=== PATIENT | female | born 1930 | race Caucasian/White ===

== ENCOUNTER 2017-06-10 13:28 | Inpatient (IN) | payer MEDICARE, OTHER ==
[~2017-06-10] VITALS: Ht 154.9 cm; Wt 51.3 kg
[~2017-06-10 13:28] MED LIST: AGRYLIN0.5 MG PO; ANAGRELIDE0.5 MG/11; ASA5UEC PO; AUGMENTIN 875875 MG PO; BACTRIM DS TAB1 EACH PO; BENEFIBER1 EACH PO; CIPRO250 M1 PO; CIPRO500 MG PO; COREG3.125 MG PO; COREG6.25 MG PO; CRESTOR10 MG PO; CRESTOR5 MG; FLAGYL500 MG PO; HYDRALAZINE 2525 MG PO; HYDREA 500 MG500 M1 PO; HYDROCODONE-AP1 EAC6 PO; IMDUR 30 MG TAB30 M1 PO; ISORDIL 5MG TABL5 MG; KEFLEX500 MG PO; KLOR-CON 1010 MEQ PO; LASIX 20 MG TAB20 MG PO; LEVAQUIN 500 M500 M2 PO; LISINOPRIL2.5 MG; LISINOPRIL5 MG PO; NORVASC10 MG PO; NORVASC2.5 MG PO; OCUVITE SOFTGE1 EAC1 PO; OCUVITE TABLET1 EAC1 PO; OMEPRAZOLE20 M1 PO; OXYBUTYNIN 5 MG5 M2 PO; PREDNISONE 10 M10 MG PO; PRILOSEC40 MG; ROBAXIN 750 MG750 M1 PO; TYLENOL325 MG PO; ULTRAM 50MG TAB50 MG PO; VERAPAMIL ER240 M1 PO; VITAMIN B-12500 MCG PO; VITAMIN D1000 UNI1 PO; ZPAK PO
[2017-06-10 13:40] VITALS: BP 177/76
[2017-06-10 15:38] LABS: ANION GAP 9 mmol/L (7-16); BUN 14 mg/dL (7-18); CALCIUM 8.3 mg/dL (8.5-10.1); CHLORIDE 100 mmol/L (98-107); CO2 29 mmol/L (21-32); CREATININE 1.1 mg/dL (0.6-1.3); GLUCOSE 117 mg/dL (70-99); POTASSIUM 4.2 mmol/L (3.5-5.1); SODIUM 138 mmol/L (136-145)
[2017-06-10 15:45] LABS: ALBUMIN 3.3 g/dL (3.4-5.0); ALKALINE PHOSPHATASE 138 U/L (46-116); SGOT 26 U/L (15-37); SGPT 19 U/L (30-65); TOTAL BILIRUBIN 0.9 mg/dL (<0.1-1.0); TOTAL PROTEIN 6.6 g/dL (6.4-8.2); TROPONIN-I LEVEL <0.06 ng/mL (<0.06)
[2017-06-10 16:06] LABS: HEMATOCRIT 49.3 % (37.0-47.0); HEMOGLOBIN 15.5 gm/dL (12.0-15.0); MCH 28.5 pg (26.0-34.0); MCHC 31.4 g/dL (28.0-37.0); MCV 90.8 fL (80.0-100.0); MPV 6.8 fl. (7.2-11.1); NUCLEATED RBCS 0 /100WBC; PLATELET COUNT* 284 thou/uL (150-400); RBC 5.44 mil/uL (4.20-5.00); RDW-CV 17.3 % (10.5-14.5); WBC 13.6 thou/uL (4.0-11.0)
[2017-06-10 16:19] LABS: INFLUENZA A ANTIGEN None Detected (None Detect); INFLUENZA B ANTIGEN None Detected (None Detect)
[2017-06-10 16:34] LABS: ABSOLUTE LYMPHOCYTES 0.7 thou/uL (0.8-5.3); ABSOLUTE MONOCYTES 0.3 thou/uL (0.0-1.2); ABSOLUTE NEUTROPHILS 12.6 thou/uL (1.6-8.1)
[2017-06-10 16:35] LABS: PLATELET ESTIMATE ADEQUATE
[2017-06-10 16:36] LABS: ANISOCYTOSIS Occasional
[2017-06-10] MEDS ORDERED: PREDNISONE 10 M10 M1 PO (16:51)
[2017-06-10] MEDS ORDERED: PROAIR HFA8.5 GM INH (16:51)
[2017-06-10] MEDS ORDERED: SPACERADULT PO (16:51)
[2017-06-10] MEDS ORDERED: ZPAK PO (16:52)
--- NOTE | 2017-06-10 17:23 | NUR ---
PT ROAD TESTED WITH RT. O2 DROPPED TO 85% ROOM AIR. PROVIDER MADE AWARE. PLAN TO ADMIT.
[2017-06-10 20:07] VITALS: BP 180/66
[2017-06-10 21:00] VITALS: BP 167/68
[2017-06-11 04:00] VITALS: BP 146/66
[2017-06-11 04:56] LABS: ABSOLUTE LYMPHOCYTES 0.3 thou/uL (0.8-5.3); ABSOLUTE MONOCYTES 0.1 thou/uL (0.0-1.2); ABSOLUTE NEUTROPHILS 12.3 thou/uL (1.6-8.1); BASOPHILS 0.2 %; HEMATOCRIT 49.4 % (37.0-47.0); LYMPHOCYTES 2.2 %; MCH 27.9 pg (26.0-34.0); MCHC 30.3 g/dL (28.0-37.0); MCV 92.4 fL (80.0-100.0); MONOCYTES 0.7 %; MPV 7.4 fl. (7.2-11.1); NUCLEATED RBCS 0 /100WBC; PLATELET COUNT* 305 thou/uL (150-400); POLYS 96.9 %; RBC 5.35 mil/uL (4.20-5.00); RDW-CV 17.1 % (10.5-14.5); WBC 12.7 thou/uL (4.0-11.0)
[2017-06-11 05:16] LABS: ANION GAP 10 mmol/L (7-16); BUN 13 mg/dL (7-18); CALCIUM 8.2 mg/dL (8.5-10.1); CHLORIDE 105 mmol/L (98-107); CO2 26 mmol/L (21-32); GLUCOSE 129 mg/dL (70-99); POTASSIUM 4.3 mmol/L (3.5-5.1); SODIUM 141 mmol/L (136-145); TROPONIN-I LEVEL <0.06 ng/mL (<0.06)
--- NOTE | 2017-06-11 06:11 | NUR ---
PATIENT ARRIVED ON FLOOR FROM ER ABOUT 2014. PATIENT ADMISSION HISTORY AND ASSESSMENT WAS COMPLETED CHARTED. IV FLUIDS WERE STARTED AT 80 ML/HR. PATIENT IS ON OXYGEN AT 2L PER NASAL CANNULA. WILL CONTINUE TO MONITOR.
[2017-06-11 08:00] VITALS: BP 178/62
--- NOTE | 2017-06-11 14:54 | NUR ---
SW met with pt to complete initial assessment, introduce self, and SW role. Pt at bedside. Pt alert and oriented. Pt anticipates being able to dc home with her . Pt independent prior with ADLs and mobility; pt does not have any DME or history of HH services. No needs or concerns expressed at this time. SW to remain available to assist with any safe dc planning needs.
--- NOTE | 2017-06-11 15:12 | 2DMMODE ---
[place] [address] 2 D/M-MODE ECHOCARDIOGRAM Name: RICHMOND STONERRimma Pagan Room: [address] ADM IN Ej#: [id number] Admission: 06/10/17 Attend Phys: Chaim Romero, Discharge: Date of : 30 Date of Service: 06/11/17 1512 Report #: [id number] THIS REPORT FOR: //name// APPROVED REPORT Study performed: 06/11/2017 11:24:34 EXAM: Comprehensive 2D, Doppler, and color-flow Echocardiogram Patient Location: In-Patient Room #: [facility] Status: routine BSA: 1.48 HR: 80 bpm BP: 146/66 mmHg Rhythm: NSR Other Information Study Quality: Good Indications Chest Pain 2D Dimensions LVEF(%): 49.50 (>50%) IVSd: 16.06 (7-11mm) LVOT Diam: 21.31 (18-24mm) LVDd: 32.81 mm PWd: 10.74 (7-11mm) Ascending Ao: 29.00 (22-36mm) LVDs: 24.84 (25-40mm) Aortic Root: 31.22 mm Minor's LVEF: 49.50 % Volumes Left Atrial Volume (Systole) LA ESV Index: 17.00 mL/m2 Aortic Valve AoV Peak Arash.: 1.49 m/s AO Peak Gr.: 8.89 mmHg LVOT Max P.34 mmHg AO Mean Gr.: 4.86 mmHg LVOT Mean P.06 mmHg LVOT Max V: 1.04 m/s AO V2 VTI: 28.16 cm LVOT Mean V: 0.65 m/s ASA (VTI): 3.04 cm2 LVOT V1 VTI: 24.02 cm Mitral Valve E/A Ratio: 0.71 [place] [address] 2 D/M-MODE ECHOCARDIOGRAM Name: IVAN STONER Ej Room: [address] IN .R.#: [id number] Admission: 06/10/17 Attend Phys: Chaim Romero, Discharge: Date of : 30 Date of Service: 06/11/17 1512 Report #: [id number] MV Decel. Time: 261.06 ms MV E Max Arash.: 0.88 m/s MV PHT: 75.71 ms MVA (PHT): 2.91 cm2 TDI E/Lateral E': 12.57 E/Medial E': 12.57 Medial E' Arash.: 0.07 m/s Lateral E' Arash.: 0.07 m/s Pulmonary Valve PV Peak Arash.: 1.21 m/s PV Peak Gr.: 5.82 mmHg Tricuspid Valve TR Peak Gr.: 23.27 mmHg RVSP: 28.00 mmHg Left Ventricle The left ventricle is normal size. Paradoxical septal motion consistent with conduction abnormality. Moderate concentric left ventricular hypertrophy. Left ventricular systolic function is normal. LVEF is 55-60%. Grade I - abnormal relaxation pattern. Right Ventricle The right ventricle is normal size. The right ventricular systolic function is normal. Atria The left atrium size is normal. The right atrium size is normal. Aortic Valve The aortic valve is normal in structure. No aortic regurgitation is present. There is no aortic valvular stenosis. Mitral Valve There is mitral annular calcification. There is no mitral valve regurgitation noted. No evidence of mitral valve stenosis. Tricuspid Valve The tricuspid valve is normal in structure. Trace tricuspid regurgitation. The RVSP is 32 mmHg. Pulmonic Valve The pulmonary valve is normal in structure. There is no pulmonic [place] [address] 2 D/M-MODE ECHOCARDIOGRAM Name: IVAN STONER Room: [address] IN [facility]#: [id number] Admission: 06/10/17 Attend Phys: Chaim Romero, Discharge: Date of : 30 Date of Service: 06/11/17 1512 Report #: [id number] Great Vessels The aortic root is normal in size. IVC is normal in size and collapses with >50% inspiration Pericardium There is no pericardial effusion. <Conclusion> The left ventricle is normal size. Moderate concentric left ventricular hypertrophy. Left ventricular systolic function is normal. LVEF is 55-60%. Grade I - abnormal relaxation pattern. Paradoxical septal motion consistent with conduction abnormality. Trace tricuspid regurgitation. The RVSP is 32 mmHg. <ELECTRONICALLY SIGNED> By: Alex Muller MD, FACC 06/11/17 151 11 11 Alex Muller MD, FACC /INF
--- NOTE | 2017-06-11 16:21 | EKG ---
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: Tang GARCIA : 1930 Requested By: Jacinta Roche Order Number: [id number] MD: Alex Muller Measurements Intervals [place] Rate: 79 P: ND: QRS: 27 QRSD: 128 T: 163 QT: 435 QTc: 499 Interpretive Statements Sinus rhythm Left bundle branch block Artifact in lead(s) I,II,III,aVR,aVL,aVF Compared to ECG 06/26/2016 14:08:43 No significant changes Electronically Signed On 06-11-2017 16:20:45 CITY COUNCILMAN by Alex Muller [email or web address] <ELECTRONICALLY SIGNED> By: Alex Muller MD, FACC 06/11/17 1620 1458 1458 Alex Muller MD, [facility] /EPI
[2017-06-11 16:30] VITALS: BP 135/61
--- NOTE | 2017-06-11 20:15 | NUR ---
ASSUMED CARE FOR THIS PATIENT THIS AM. A/O X 4, DENIES PAIN, UP AD SHRUTI. ON 2L02NC, MID 80'S 02 SAT ON RA, MID 90'S 02 SAT ON 2L. NONPROD COUGH THROUGHOUT THIS SHIFT, OCC CRACKLE IN RLL, OTHERWISE LSCTAB. ALESHA DIET WELL, CONTINENT OF BOWEL/BLADDER, ALESHA IV ABT W/O ADR. CALL LIGHT IN REACH.
[2017-06-11 23:30] VITALS: BP 129/57
[2017-06-12 03:55] VITALS: BP 152/79
[2017-06-12 04:22] LABS: ALBUMIN 2.9 g/dL (3.4-5.0); CALCIUM 8.5 mg/dL (8.5-10.1); CREATININE 1.2 mg/dL (0.6-1.3); MAGNESIUM 1.8 mg/dL (1.8-2.4); POTASSIUM 3.4 mmol/L (3.5-5.1); TOTAL BILIRUBIN 0.6 mg/dL (<0.1-1.0); TOTAL PROTEIN 6.1 g/dL (6.4-8.2)
[2017-06-12 05:12] LABS: ABSOLUTE BASOPHILS 0.1 thou/uL (0.0-0.2); ABSOLUTE EOSINOPHILS 0.1 thou/uL (0.0-0.7); ABSOLUTE LYMPHOCYTES 0.5 thou/uL (0.8-5.3); ABSOLUTE MONOCYTES 0.7 thou/uL (0.0-1.2); ABSOLUTE NEUTROPHILS 14.4 thou/uL (1.6-8.1); BASOPHILS 0.4 %; EOSINOPHILS 0.4 %; HEMATOCRIT 49.4 % (37.0-47.0); HEMOGLOBIN 15.2 gm/dL (12.0-15.0); LYMPHOCYTES 2.9 %; MCH 28.2 pg (26.0-34.0); MCHC 30.7 g/dL (28.0-37.0); MCV 91.7 fL (80.0-100.0); MONOCYTES 4.4 %; MPV 6.8 fl. (7.2-11.1); NUCLEATED RBCS 0 /100WBC; PLATELET COUNT* 338 thou/uL (150-400); POLYS 91.9 %; RBC 5.38 mil/uL (4.20-5.00); RDW-CV 17.4 % (10.5-14.5); WBC 15.6 thou/uL (4.0-11.0)
--- NOTE | 2017-06-12 07:33 | NUR ---
PATIENT SLEPT PART OF THE NIGHT. PATIENT IS MORE FORGETUL AND A LITTLE CONFUSED AT NIGHT. BED ALARM REMAINS ON FOR PATIENT SAFETY. OXYGEN REMAINS ON 2L PER NASAL CANNULA. WILL CONTINUE TO MONITOR.
[2017-06-12 07:50] VITALS: BP 166/79
[2017-06-12] MEDS ORDERED: LEVAQUIN 500 M500 M2 PO (13:52)
[2017-06-12 13:53] VITALS: BP 166/79
--- NOTE | 2017-06-12 14:36 | NUR ---
ORDERS RECEIVED FOR DC HOME, DISCUSS HH WITH PT. SHE WOULD LIKE TO USE [facility] AGAIN. [facility] PT DID NOT QUALIFY FOR HOME O2. SHE WAS HAPPY ABOUT IT. NO OTHER NEEDS ID'D
[2017-06-12 16:27] VITALS: BP 155/77
--- NOTE | 2017-06-12 18:26 | NUR ---
PATIENT RESTING IN BED. PATIENT IS ALERT AND ORIENTED AND FORGETFUL. PATIENT IS UP STANDBY ASSIST. PATIENT IS ANXIOUS ABOUT CT SCAN IN AM. PATIENT HAD COMPLAINTS OF BACK PAIN THIS AM, TREATED ADEQUATELY WITH TYLENOL. PATIENT DENIES ANY TROUBLE BREATHING. PATIENT IS ON ROOM AIR THIS EVENING AFTER EXERCISE SAT PERFORMED BY RT. PATIENT DENIES ANY NEEDS. CALL LIGHT WITHIN REACH. WILL CONTINUE TO MONITOR.
[2017-06-13] VITALS: BP 123/54
[2017-06-13 04:18] VITALS: BP 143/68
--- NOTE | 2017-06-13 05:49 | NUR ---
PATIENT SLEPT MOST OF THE NIGHT. IV FLUIDS CONTINUE TO INFUSE AT 70 ML/HR. PATIENT WAS GIVEN TYLENOL ONCE FOR PAIN. PATIENT WAS PLACED BACK ON 2L PER NASAL CANNULA AFTER SATTING 86% ON ROOM AIR. WILL CONTINUE TO MONITOR.
[2017-06-13 06:03] LABS: CREATININE 1.2 mg/dL (0.6-1.3); POTASSIUM 3.8 mmol/L (3.5-5.1)
[2017-06-13 07:50] VITALS: BP 136/69
[2017-06-13 13:12] VITALS: BP 166/79
--- NOTE | 2017-06-13 13:14 | NUR ---
NILA discussed with pt to confirm HH services through [facility] as pt to dc today. Pt hopeful to receive same nurse from [facility] as she had on service in the past. NILA called and left Jumana with [facility] HH Intake a message and faxed referral/final orders and med list to [phone]. Pt has RW at home and pt here to provide pt ride home.
--- NOTE | 2017-06-13 15:25 | NUR ---
PATIENT DISCHARGED TO HOME WITH HOME HEALTH. DISCHARGE PAPERS REVIEWED AND SIGNED. PRESCRIPTIONS AND INFORMATION SHEETS GIVEN. IV'S REMOVED. PATIENT DENIES ANY FURTHER NEEDS. PATIENT TAKEN BY WHEELCHAIR TO EXIT. LEFT WITH .
== END 2017-06-13 13:30 | disposition home health service (06) | DRG 177 ==
LOC: M.ERS 13:28 → M.TBA-ER 17:30 → M.3W 17:30
PROVIDERS: Nurse Practitioner Family; ADMIT Internal Medicine
DX: J15.6 Pneumonia due to other Gram-negative bacteria (principal); J96.00 Acute respiratory failure, unspecified whether with hypoxia or hypercapnia; I42.9 Cardiomyopathy, unspecified; I13.0 Hypertensive heart and chronic kidney disease with heart failure and stage 1 through stage 4 chronic kidney disease, or unspecified chronic kidney disease; R65.10 Systemic inflammatory response syndrome (SIRS) of non-infectious origin without acute organ dysfunction; I50.32 Chronic diastolic (congestive) heart failure; N18.9 Chronic kidney disease, unspecified; J20.9 Acute bronchitis, unspecified; D47.3 Essential (hemorrhagic) thrombocythemia; I50.9 Heart failure, unspecified; M19.90 Unspecified osteoarthritis, unspecified site; Z79.899 Other long term (current) drug therapy; Z90.12 Acquired absence of left breast and nipple; Z90.49 Acquired absence of other specified parts of digestive tract; Z86.73 Personal history of transient ischemic attack (TIA), and cerebral infarction without residual deficits; Z90.710 Acquired absence of both cervix and uterus; Z88.0 Allergy status to penicillin; Z88.8 Allergy status to other drugs, medicaments and biological substances; Z91.041 Radiographic dye allergy status

== ENCOUNTER → 2017-07-26 | Outpatient (CLI) | payer MEDICARE, OTHER ==
[~2017-07-26] MED LIST changes: +PREDNISONE 10 M10 M1 PO; +PROAIR HFA8.5 GM INH; +PROTONIX 20 MG20 M1 PO; +SPACERADULT PO
== END ==
LOC: M.ULTRA 13:02
DX: I77.9 Disorder of arteries and arterioles, unspecified (principal); G45.9 Transient cerebral ischemic attack, unspecified

== ENCOUNTER 2017-08-15 21:48 | Inpatient (IN) | payer MEDICARE, OTHER ==
[~2017-08-15] VITALS: Ht 157.5 cm; Wt 50.3 kg
[~2017-08-15 21:48] MED LIST changes: -PROTONIX 20 MG20 M1 PO
[2017-08-15 21:52] VITALS: BP 176/68
[2017-08-15 22:18] LABS: ABSOLUTE BASOPHILS 0.1 thou/uL (0.0-0.2); ABSOLUTE EOSINOPHILS 0.4 thou/uL (0.0-0.7); ABSOLUTE LYMPHOCYTES 1.4 thou/uL (0.8-5.3); ABSOLUTE MONOCYTES 0.6 thou/uL (0.0-1.2); ABSOLUTE NEUTROPHILS 10.6 thou/uL (1.6-8.1); BASOPHILS 1.1 %; EOSINOPHILS 3.2 %; HEMATOCRIT 50.4 % (37.0-47.0); HEMOGLOBIN 15.7 gm/dL (12.0-15.0); LYMPHOCYTES 10.4 %; MCH 28.3 pg (26.0-34.0); MCHC 31.2 g/dL (28.0-37.0); MCV 90.7 fL (80.0-100.0); MONOCYTES 4.9 %; MPV 7.1 fl. (7.2-11.1); NUCLEATED RBCS 0 /100WBC; PLATELET COUNT* 458 thou/uL (150-400); POLYS 80.4 %; RBC 5.56 mil/uL (4.20-5.00); RDW-CV 17.4 % (10.5-14.5); WBC 13.2 thou/uL (4.0-11.0)
[2017-08-15 22:28] LABS: ANION GAP 8 mmol/L (7-16); BUN 13 mg/dL (7-18); CALCIUM 8.6 mg/dL (8.5-10.1); CHLORIDE 106 mmol/L (98-107); CO2 26 mmol/L (21-32); CREATININE 0.9 mg/dL (0.6-1.3); GLUCOSE 98 mg/dL (70-99); POTASSIUM 3.9 mmol/L (3.5-5.1); SODIUM 140 mmol/L (136-145)
[2017-08-15 22:31] LABS: INR 1.2; PROTIME 11.9 Seconds (9.20-11.50)
[2017-08-15 22:33] LABS: URINE BILIRUBIN NEGATIVE (Negative); URINE BLOOD TRACE (Negative); URINE CLARITY CLEAR; URINE COLOR YELLOW; URINE GLUCOSE-RANDOM NEGATIVE (Negative); URINE KETONES NEGATIVE (Negative); URINE LEUKOCYTES-REFLEX TRACE (Negative); URINE NITRITE-REFLEX NEGATIVE (Negative); URINE PROTEIN NEGATIVE (Negative); URINE UROBILINOGEN 0.2 E.U./dl (0.2-1.0)
[2017-08-15 22:39] LABS: ALBUMIN 3.1 g/dL (3.4-5.0); ALKALINE PHOSPHATASE 110 U/L (46-116); LIPASE 114 U/L (73-393); NT-PRO BRAIN NAT PEPTIDE 856 pg/mL (<300); SGOT 43 U/L (15-37); SGPT 39 U/L (30-65); TOTAL BILIRUBIN 0.8 mg/dL (<0.1-1.0); TOTAL PROTEIN 6.3 g/dL (6.4-8.2); TROPONIN-I LEVEL <0.06 ng/mL (<0.06)
[2017-08-15 22:42] LABS: BACTERIA-REFLEX None Seen /HPF (None Seen); MUCUS None Seen strn/LPF (None Seen); SQUAMOUS 0-3 Few /LPF (0-3); URINE WBC-REFLEX 0-5 Rare /HPF (0-5)
[2017-08-15 22:43] LABS: CASTS None Seen /LPF (None Seen); CRYSTALS None Seen /LPF (None Seen); URINE RBC 0-2 Rare /HPF (0-2)
[2017-08-15 23:55] VITALS: BP 165/59
[2017-08-16 00:23] VITALS: BP 152/59
[2017-08-16 04:00] VITALS: BP 129/52
[2017-08-16 04:57] LABS: HEMATOCRIT 46.7 % (37.0-47.0); HEMOGLOBIN 14.3 gm/dL (12.0-15.0); MCH 27.9 pg (26.0-34.0); MCHC 30.5 g/dL (28.0-37.0); MCV 91.3 fL (80.0-100.0); MPV 7.2 fl. (7.2-11.1); RBC 5.12 mil/uL (4.20-5.00); RDW-CV 17.3 % (10.5-14.5); WBC 11.7 thou/uL (4.0-11.0)
[2017-08-16 05:12] LABS: ALBUMIN 2.6 g/dL (3.4-5.0); CALCIUM 8.2 mg/dL (8.5-10.1); CREATININE 0.9 mg/dL (0.6-1.3); POTASSIUM 3.8 mmol/L (3.5-5.1); TOTAL BILIRUBIN 0.7 mg/dL (<0.1-1.0); TOTAL PROTEIN 5.4 g/dL (6.4-8.2)
[2017-08-16 09:20] VITALS: BP 155/63
--- NOTE | 2017-08-16 11:38 | EKG ---
[place] [address] ELECTROCARDIOGRAM REPORT Name: IVAN STONER Room: [address] ADM IN M.R.#: [id number] Admission: 08/15/17 Attend Phys: Chaim Romero MD Discharge: Date of : 30 Report #: [id number] THIS REPORT FOR: //name// [facility] ED Test Date: 2017-08-15 Test Time: 21:58:46 Pat Name: IVAN STONER Department: Room: 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 [place]: [place] : 1930 Requested By: Mariia Mendez Order Number: [id number] MD: Kurt Lagunas Measurements Intervals [place] Rate: 82 P: 75 [place]: 178 QRS: 37 QRSD: 124 T: 82 QT: 450 QTc: 526 Interpretive Statements Sinus rhythm Left bundle branch block Compared to ECG 06/10/2017 14:58:39 No significant changes Electronically Signed On 08-16-2017 11:38:42 CDT by Kurt Lagunas [email or web address] <ELECTRONICALLY SIGNED> By: Kurt Lagunas MD, [facility] 08/16/17 1138 2158 57 Kurt Lagunas MD, [facility] /EPI
--- NOTE | 2017-08-16 11:40 | EKG ---
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
[2017-08-16 12:00] VITALS: BP 162/69
[2017-08-16 15:43] VITALS: BP 118/52
[2017-08-16 20:39] VITALS: BP 91/57
[2017-08-17] VITALS: BP 111/50
[2017-08-17 04:00] VITALS: BP 115/55
[2017-08-17 05:49] LABS: HEMATOCRIT 43.5 % (37.0-47.0); HEMOGLOBIN 13.4 gm/dL (12.0-15.0); MCH 28.2 pg (26.0-34.0); MCHC 30.7 g/dL (28.0-37.0); MCV 91.8 fL (80.0-100.0); MPV 7.5 fl. (7.2-11.1); RBC 4.74 mil/uL (4.20-5.00); RDW-CV 17.3 % (10.5-14.5); WBC 10.6 thou/uL (4.0-11.0)
[2017-08-17 07:20] LABS: ANION GAP 10 mmol/L (7-16); BUN 19 mg/dL (7-18); CALCIUM 8.4 mg/dL (8.5-10.1); CHLORIDE 105 mmol/L (98-107); CO2 25 mmol/L (21-32); CREATININE 1.3 mg/dL (0.6-1.3); GLUCOSE 70 mg/dL (70-99); POTASSIUM 4.3 mmol/L (3.5-5.1); SODIUM 140 mmol/L (136-145); TROPONIN-I LEVEL <0.06 ng/mL (<0.06)
[2017-08-17 08:25] VITALS: BP 150/63
[2017-08-17 08:29] VITALS: BP 150/63
[2017-08-17 11:35] VITALS: BP 108/53
[2017-08-17] MEDS ORDERED: CIPRO500 MG PO (13:18)
--- NOTE | 2017-08-17 13:18 | CON ---
[address] [address] CONSULTATION Name: IVAN STONER jE Room: [address] IN M.R.#: [id number] Admission: 08/15/17 Attend Phys: Chaim Romero MD Discharge: Date of : 30 Report #: [id number] THIS REPORT FOR: //name// CC: Chaim Romero [facility] physician/PCP AMY RUIZ DATE OF SERVICE: 08/16/2017 PRIMARY CARE PHYSICIAN: Dr. Amy Ruiz. HISTORY OF PRESENT ILLNESS: The patient is an 86-year-old white female who I was asked to see in the hospital today after she complained of having chest pain. The patient has had multiple hospitalizations here at [facility]. She actually saw Dr. Tidwell back in 2014 when she complained of being short of breath. Echocardiogram showed preserved left ventricular function. She has a history of paroxysmal supraventricular tachycardia. She apparently has never had a heart catheterization. Her last hospitalization here at [facility] was in May when she presented with bronchitis. Cardiac workup in the past included an echocardiogram in May that showed an ejection fraction of 60%, left ventricular hypertrophy. She apparently has never had a heart catheterization. She did have previous nuclear stress test showing no ischemia. The patient actually just saw my nurse practitioner yesterday. She has had no significant complaints. The patient is not very active because of her age. The patient states that she was lying in bed last night at about 9:00, and she suddenly felt a pain in her chest. It went around into her back. It was a heavy sensation. She had some belching, felt short of breath, went into her left arm. Her brought her to the emergency room, and she was admitted. The pain lasted about 2 hours. She has had only brief chest pain since that time. She has had no recent fever, cough, blood in her stool, trauma in her chest or rash. PAST MEDICAL HISTORY: Otherwise significant for cataract extraction, cholecystectomy, hernia repair, hysterectomy, left mastectomy for breast cancer. She had a tonsillectomy, hypertension, hyperlipidemia. MEDICATIONS: Consist of amlodipine, aspirin, carvedilol, furosemide, hydralazine, hydroxyurea, Imdur, Crestor. ALLERGIES: SHE HAS A PREVIOUS INTOLERANCE TO PENICILLIN. FAMILY HISTORY: Negative for heart disease. SOCIAL HISTORY: She is . Her is actually a patient of mine. They live in [place]. No smoking or alcohol use. REVIEW OF SYSTEMS: She has no history of stroke, asthma, peptic ulcer disease, [place] [address] CONSULTATION Name: IVAN STONER Room: [address] IN [facility]#: [id number] Admission: 08/15/17 Attend Phys: Chaim Romero MD Discharge: Date of : 30 Report #: [id number] liver disease. She does have a history of thrombocytosis and is followed in the Oncology Clinic. She has history of chronic kidney disease, followed by a debt collector. She had a history of breast cancer. No history of psychiatric illness. No chronic skin condition. PHYSICAL EXAMINATION: GENERAL: Revealed an elderly frail appearing female who appeared in no distress. VITAL SIGNS: Blood pressure 150/60, pulse 70. She is afebrile. HEENT: She was anicteric, conjunctiva pink. Mucous membranes moist. NECK: Veins nondistended. No carotid bruits. Neck supple. CHEST: Clear to auscultation. CARDIOVASCULAR: Regular rate without murmur. ABDOMEN: Soft, nontender. EXTREMITIES: Had no edema. Dorsalis pedis pulse cannot be palpated. SKIN: Cool and dry. NEUROLOGIC: Nonfocal. LYMPH: No adenopathy. MUSCULOSKELETAL: No joint effusion. RADIOLOGICAL DATA: ECG showed a sinus rhythm with a left bundle branch block that had been noted on previous ECGs. Her workup so far, she had a portable chest x-ray last night that showed chronic changes, nothing acute. Pulmonary vasculature was normal. Carotid Doppler study last month showed mild plaque, no high grade stenosis. LABORATORY DATA: Sodium 142, creatinine 0.9. Liver function studies are normal. Troponins 0.06. White blood cell count 11.7, hemoglobin 14.3, platelet count 406,000. IMPRESSION AND RECOMMENDATIONS: 1. Chest pain. The patient has risk factors for coronary artery disease. No evidence of acute myocardial infarction. In light of her advanced age, I would recommend a conservative approach. I would not recommend stress testing nor cardiac catheterization. 2. History of cardiomyopathy. The patient has been on beta aprvin, hydralazine and long-acting nitrates. 3. Hyperlipidemia. The patient is on a statin drug. 4. History of breast cancer. <ELECTRONICALLY SIGNED> By: Kurt Lagunas MD, FACC 08/17/17 1318 1231 1345Davilyssa Lagunas MD, FAC /nt
[2017-08-17] MEDS ORDERED: PROTONIX 20 MG20 M1 PO (13:19)
== END 2017-08-17 13:35 | disposition home or self-care (01) | DRG 303 ==
LOC: M.ERS 21:48 → M.2W 23:18 → M.TBA-ER 23:18 → M.2W 08-16 00:05
PROVIDERS: Emergency Medicine; Family Medicine; ADMIT Internal Medicine
DX: I25.119 Atherosclerotic heart disease of native coronary artery with unspecified angina pectoris (principal); I13.0 Hypertensive heart and chronic kidney disease with heart failure and stage 1 through stage 4 chronic kidney disease, or unspecified chronic kidney disease; I50.32 Chronic diastolic (congestive) heart failure; E44.0 Moderate protein-calorie malnutrition; M19.90 Unspecified osteoarthritis, unspecified site; E78.5 Hyperlipidemia, unspecified; I42.9 Cardiomyopathy, unspecified; N18.3 Chronic kidney disease, stage 3 (moderate); Z86.73 Personal history of transient ischemic attack (TIA), and cerebral infarction without residual deficits; Z90.710 Acquired absence of both cervix and uterus; Z90.12 Acquired absence of left breast and nipple; Z90.49 Acquired absence of other specified parts of digestive tract; Z88.6 Allergy status to analgesic agent; Z88.8 Allergy status to other drugs, medicaments and biological substances; Z88.0 Allergy status to penicillin; Z98.42 Cataract extraction status, left eye; Z98.41 Cataract extraction status, right eye; Z85.3 Personal history of malignant neoplasm of breast; Z79.899 Other long term (current) drug therapy; Z79.82 Long term (current) use of aspirin; Z68.20 Body mass index [BMI] 20.0-20.9, adult; Z88.2 Allergy status to sulfonamides

== ENCOUNTER → 2017-08-15 | Outpatient (CLI) | payer MEDICARE, OTHER | LOC: M.CT 12:06 | DX: I72.2 Aneurysm of renal artery (principal); R16.1 Splenomegaly, not elsewhere classified; K57.32 Diverticulitis of large intestine without perforation or abscess without bleeding; J98.11 Atelectasis ==

== ENCOUNTER → 2017-08-22 | Outpatient (CLI) | payer MEDICARE, OTHER ==
[~2017-08-22] MED LIST changes: +PROTONIX 20 MG20 M1 PO
[2017-08-22 10:52] LABS: CALCIUM 8.4 mg/dL (8.5-10.1); CREATININE 1.6 mg/dL (0.6-1.3); POTASSIUM 3.7 mmol/L (3.5-5.1)
== END ==
LOC: M.LAB 09:54
PROVIDERS: Internal Medicine Cardiovascular Disease
DX: I50.22 Chronic systolic (congestive) heart failure (principal)

== ENCOUNTER → 2017-08-26 | Outpatient (CLI) | payer MEDICARE, OTHER | LOC: M.RAD 09:31 | DX: K21.9 Gastro-esophageal reflux disease without esophagitis (principal); K44.9 Diaphragmatic hernia without obstruction or gangrene; K57.10 Diverticulosis of small intestine without perforation or abscess without bleeding; I20.0 Unstable angina ==

== ENCOUNTER 2017-08-30 05:53 | Inpatient (IN) | payer MEDICARE, OTHER ==
[~2017-08-30] VITALS: Ht 157.5 cm; Wt 54.4 kg
[2017-08-30] VITALS (8 sets, daily range): BP systolic 129–155; BP diastolic 51–65
--- NOTE | ~2017-08-30 | PROC ---
[address] [address] PROCEDURE REPORT Name: IVAN STONER Room: [address] IN M.R.#: [id number] Admission: 08/30/17 Attend Phys: Mita Lazo MD Discharge: 09/04/17 Date of : 30 Report #: [id number] THIS REPORT FOR: //name// For GI report, Please see Perceptive 7 content. By: [id number] Records Staff PARK /ABY
--- NOTE | ~2017-08-30 | PROC ---
[address] [address] PROCEDURE REPORT Name: IVAN STONER Room: [address] IN M.R.#: [id number] Admission: 08/30/17 Attend Phys: Mita Lazo MD Discharge: 09/04/17 Date of : 30 Report #: [id number] THIS REPORT FOR: //name// By: [id number] Haider MD /ALEJANDRO
[2017-08-30 06:24] LABS: HEMATOCRIT 57.2 % (37.0-47.0); MCHC 29.7 g/dL (28.0-37.0); MCV 90.8 fL (80.0-100.0); MPV 7.4 fl. (7.2-11.1); NUCLEATED RBCS 0 /100WBC; PLATELET COUNT* 401 thou/uL (150-400); RBC 6.31 mil/uL (4.20-5.00); RDW-CV 17.5 % (10.5-14.5); WBC 16.2 thou/uL (4.0-11.0)
[2017-08-30 06:37] LABS: ANION GAP 13 mmol/L (7-16); BUN 23 mg/dL (7-18); CALCIUM 9.2 mg/dL (8.5-10.1); CHLORIDE 103 mmol/L (98-107); CO2 23 mmol/L (21-32); CREATININE 1.4 mg/dL (0.6-1.3); GLUCOSE 149 mg/dL (70-99); POTASSIUM 3.6 mmol/L (3.5-5.1); SODIUM 139 mmol/L (136-145)
[2017-08-30 06:38] LABS: INR 1.3; PROTIME 12.6 Seconds (9.20-11.50)
[2017-08-30 06:44] LABS: ALBUMIN 3.6 g/dL (3.4-5.0); ALKALINE PHOSPHATASE 118 U/L (46-116); SGOT 46 U/L (15-37); SGPT 39 U/L (30-65); TOTAL PROTEIN 6.7 g/dL (6.4-8.2); TROPONIN-I LEVEL <0.06 ng/mL (<0.06)
[2017-08-30 07:19] LABS: ABSOLUTE BASOPHILS 0.2 thou/uL (0.0-0.2); ABSOLUTE EOSINOPHILS 0.2 thou/uL (0.0-0.7); ABSOLUTE LYMPHOCYTES 1.1 thou/uL (0.8-5.3); ABSOLUTE MONOCYTES 0.6 thou/uL (0.0-1.2); ABSOLUTE NEUTROPHILS 14.1 thou/uL (1.6-8.1); PLATELET ESTIMATE ADEQUATE
[2017-08-30 14:38] LABS: HEMATOCRIT 50.8 % (37.0-47.0); HEMOGLOBIN 15.5 gm/dL (12.0-15.0)
[2017-08-31] VITALS (8 sets, daily range): BP systolic 104–153; BP diastolic 40–61
[2017-08-31 04:51] LABS: CALCIUM 8.4 mg/dL (8.5-10.1); CREATININE 1.1 mg/dL (0.6-1.3); MAGNESIUM 1.8 mg/dL (1.8-2.4); POTASSIUM 3.6 mmol/L (3.5-5.1)
[2017-08-31 05:07] LABS: HEMATOCRIT 50.3 % (37.0-47.0); HEMOGLOBIN 15.2 gm/dL (12.0-15.0); MCH 27.3 pg (26.0-34.0); MCHC 30.3 g/dL (28.0-37.0); MCV 90.2 fL (80.0-100.0); MPV 7.5 fl. (7.2-11.1); RBC 5.57 mil/uL (4.20-5.00); RDW-CV 17.4 % (10.5-14.5); WBC 16.1 thou/uL (4.0-11.0)
[2017-09-01 03:51] LABS: HEMATOCRIT 43.2 % (37.0-47.0); MCH 27.1 pg (26.0-34.0); MCHC 30.3 g/dL (28.0-37.0); MCV 89.2 fL (80.0-100.0); MPV 7.3 fl. (7.2-11.1); RBC 4.84 mil/uL (4.20-5.00); RDW-CV 17.1 % (10.5-14.5); WBC 11.2 thou/uL (4.0-11.0)
[2017-09-01 03:54] LABS: HEMOGLOBIN 13.1 gm/dL (12.0-15.0)
[2017-09-01 04:12] LABS: CALCIUM 7.9 mg/dL (8.5-10.1); CREATININE 1.1 mg/dL (0.6-1.3); MAGNESIUM 1.7 mg/dL (1.8-2.4)
[2017-09-01 04:32] LABS: POTASSIUM 2.9 mmol/L (3.5-5.1)
[2017-09-01 12:09] VITALS: BP 104/42
[2017-09-01 16:00] VITALS: BP 120/47
[2017-09-01 23:42] VITALS: BP 118/53
[2017-09-02 05:15] LABS: HEMATOCRIT 43.8 % (37.0-47.0); HEMOGLOBIN 13.3 gm/dL (12.0-15.0); MCH 27.1 pg (26.0-34.0); MCHC 30.3 g/dL (28.0-37.0); MCV 89.5 fL (80.0-100.0); MPV 7.3 fl. (7.2-11.1); RBC 4.9 mil/uL (4.20-5.00); RDW-CV 17.1 % (10.5-14.5); WBC 11.6 thou/uL (4.0-11.0)
[2017-09-02 05:21] LABS: URINE BILIRUBIN NEGATIVE (Negative); URINE BLOOD 1+ (Negative); URINE CLARITY CLEAR; URINE COLOR YELLOW; URINE GLUCOSE-RANDOM NEGATIVE (Negative); URINE KETONES NEGATIVE (Negative); URINE LEUKOCYTES-REFLEX TRACE (Negative); URINE NITRITE-REFLEX NEGATIVE (Negative); URINE PROTEIN TRACE (Negative); URINE SPECIFIC GRAVITY 1.025 (1.005-1.030); URINE UROBILINOGEN 0.2 E.U./dl (0.2-1.0)
[2017-09-02 05:34] LABS: BACTERIA-REFLEX 1-9 Few /HPF (None Seen); CASTS None Seen /LPF (None Seen); CRYSTALS None Seen /LPF (None Seen); MUCUS 0-3 Light strn/LPF (None Seen); SQUAMOUS 0-3 Few /LPF (0-3); URINE RBC 0-2 Rare /HPF (0-2); URINE WBC-REFLEX 6-15 Few /HPF (0-5)
[2017-09-02 05:47] LABS: CALCIUM 7.9 mg/dL (8.5-10.1); CREATININE 1.1 mg/dL (0.6-1.3); MAGNESIUM 1.7 mg/dL (1.8-2.4); POTASSIUM 3.8 mmol/L (3.5-5.1)
[2017-09-02 10:35] VITALS: BP 106/58
--- NOTE | 2017-09-02 15:01 | CON ---
[address] [address] CONSULTATION Name: IVAN STONER Room: [address] IN M.R.#: [id number] Admission: 08/30/17 Attend Phys: Mita Lazo MD Discharge: Date of : 30 Report #: [id number] THIS REPORT FOR: //name// CC: Mita Worthington MD DATE OF SERVICE: 08/31/2017 REQUESTING PHYSICIAN: Dr. Mita Lazo. REASON FOR CONSULT: Hematochezia, diarrhea and rectal pain. HISTORY OF PRESENT ILLNESS: This is an 87-year-old female who was recently discharged from hospital on 08/27/2017. She returns after 3 days with rectal bleeding. Since admission, her hemoglobin has been stable between 17 and 15. She is also hemodynamically stable. During her last visit, she had diagnosis of diverticulitis and diarrhea. Her diarrhea had resolved during the hospitalization prior to discharging home. She was discharged on Cipro and Flagyl. The patient underwent RBC tagged scan, which was essentially unremarkable. Her last colonoscopy back in 2009 was significant for tubular adenoma and pandiverticulosis. PAST MEDICAL HISTORY: Significant for chronic kidney disease, hypertension, idiopathic thrombocytopenia, arthritis, TIA, left mastectomy, hysterectomy, gallbladder disease, status post cholecystectomy, cataract surgery, tonsillectomy, hernia repair. ALLERGIES: SIGNIFICANT TO IODINE, MACROBID, LIPITOR, AND PENICILLIN. MEDICATIONS: Please refer to hospital JUL. SOCIAL HISTORY: The patient denies tobacco or alcohol use. FAMILY HISTORY: Noncontributory. PHYSICAL EXAMINATION: VITAL SIGNS: Reveals blood pressure of 106/40, respirations 17, pulse 81, temperature 98.1. LUNGS: Clear. CARDIOVASCULAR: Regular. ABDOMEN: Soft, mildly tender to palpation in the lower quadrant[place] [address] CONSULTATION Name: IVAN STONER Room: [address] IN [facility]#: [id number] Admission: 08/30/17 Attend Phys: Mita Lazo MD Discharge: Date of : 30 Report #: [id number] LABORATORY DATA: Revealed sodium of 140, potassium 3.6, BUN is 13, creatinine 1.1, glucose 135. Liver function tests are all within normal limit. INR is 1.3 with protime of 12.6. WBC 16.1, hemoglobin 15.2 with platelet of 401. IMAGING: CT of GI RBC tagged scan was essentially negative. ASSESSMENT AND PLAN: The patient with rectal pain and blood per rectum, who has had recent history of diverticulitis and diarrhea. We will continue monitoring H and H and if her bleeding persists, may consider flex sigmoidoscopy. <ELECTRONICALLY SIGNED> By: Lucy Haider MD 09/02/17 1501 0908 [id number] Haider MD /rizwan
[2017-09-02 17:25] VITALS: BP 140/74; BP 157/66
[2017-09-02 17:38] VITALS: BP 117/61
[2017-09-03 00:22] VITALS: BP 136/57
[2017-09-03 08:30] VITALS: BP 135/66
[2017-09-03 12:16] VITALS: BP 135/66
--- NOTE | 2017-09-03 16:28 | EKG ---
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 09/03/17 1627 1708 1708 Baldemar Smith MD, [facility] /EPI
[2017-09-03 23:27] VITALS: BP 102/48
[2017-09-04 03:47] VITALS: BP 119/47
[2017-09-04 07:57] LABS: URINE BLOOD NEGATIVE (Negative); URINE CLARITY CLEAR; URINE COLOR YELLOW; URINE GLUCOSE-RANDOM NEGATIVE (Negative); URINE KETONES 1+ (Negative); URINE LEUKOCYTES-REFLEX NEGATIVE (Negative); URINE PROTEIN 1+ (Negative); URINE SPECIFIC GRAVITY >= 1.030 (1.005-1.030); URINE UROBILINOGEN 0.2 E.U./dl (0.2-1.0)
[2017-09-04 08:15] VITALS: BP 134/59
[2017-09-04 08:23] LABS: ICTOTEST (BILI CONFIRMATORY) Negative (Negative); URINE BILIRUBIN 1+ (Negative); URINE NITRITE-REFLEX POSITIVE (Negative)
[2017-09-04 08:29] LABS: BACTERIA-REFLEX 1-9 Few /HPF (None Seen); CRYSTALS None Seen /LPF (None Seen); HYALINE CASTS 0-3 Few /LPF (None Seen); MUCUS 4-6 Moderate strn/LPF (None Seen); SQUAMOUS 4-10 Moderate /LPF (0-3); URINE RBC 0-2 Rare /HPF (0-2); URINE WBC-REFLEX 0-5 Rare /HPF (0-5)
[2017-09-04] MEDS ORDERED: CIPRO500 MG PO (11:07)
[2017-09-04] MEDS ORDERED: FLAGYL500 MG PO (11:07)
[2017-09-04 11:49] VITALS: BP 106/40
[2017-09-04 12:52] VITALS: BP 106/40
--- NOTE | 2017-10-20 10:00 | PROC ---
[address] [address] PROCEDURE REPORT Name: IVAN STONER Ej Room: [address] IN M.R.#: [id number] Admission: 08/30/17 Attend Phys: Mita Lazo MD Discharge: 09/04/17 Date of : 30 Report #: [id number] THIS REPORT FOR: //name// Procedure Note Description of Procedure: Colonsscopy to TI report: Preparation of the colon was fair. Diverticulosis in the sigmoid colon, in the descending colon, in the transverse colon and in the ascending colon. Non-bleeding external hemorrhoids. One 8 mm polyp in the cecum. Biopsied - Erythematous, inflamed and ulcerated mucosa in the rectum and in the sigmoid colon. Biopsied. The examined portion of the ileum was normal. Plan: Await pathology results. Cipro (ciprofloxacin) 500 mg PO BID for 2 weeks. Flagyl (metronidazole) 500 mg PO TID for 2 weeks. Discharge patient to home (ambulatory). Return to GI clinic in 2 weeks. <ELECTRONICALLY SIGNED> By: Lucy Haider MD 10/20/17 1000 D: 1145Lcuy Haider MD /ALEJANDRO
== END 2017-09-04 13:15 | disposition home health service (06) | DRG 813 ==
LOC: M.ERS 05:53 → M.3W 06:45 → M.TBA-ER 06:45 → M.ICU 13:07 → M.3W 08-31 15:02
PROVIDERS: Emergency Medicine; Family Medicine; Internal Medicine; ADMIT Internal Medicine
PROC: 0DBN8ZX Excision of Sigmoid Colon, Via Natural or Artificial Opening Endoscopic, Diagnostic (ICD-10-PCS; principal; 2017-09-03)
PROC: 0DBH8ZX Excision of Cecum, Via Natural or Artificial Opening Endoscopic, Diagnostic (ICD-10-PCS; principal; 2017-09-03)
DX: D68.32 Hemorrhagic disorder due to extrinsic circulating anticoagulants (principal); K29.81 Duodenitis with bleeding; K57.31 Diverticulosis of large intestine without perforation or abscess with bleeding; R65.11 Systemic inflammatory response syndrome (SIRS) of non-infectious origin with acute organ dysfunction; N17.0 Acute kidney failure with tubular necrosis; K55.9 Vascular disorder of intestine, unspecified; N18.4 Chronic kidney disease, stage 4 (severe); N39.0 Urinary tract infection, site not specified; K62.6 Ulcer of anus and rectum; K63.3 Ulcer of intestine; K64.4 Residual hemorrhoidal skin tags; D12.0 Benign neoplasm of cecum; D50.9 Iron deficiency anemia, unspecified; I12.9 Hypertensive chronic kidney disease with stage 1 through stage 4 chronic kidney disease, or unspecified chronic kidney disease; M19.90 Unspecified osteoarthritis, unspecified site; K21.9 Gastro-esophageal reflux disease without esophagitis; K64.9 Unspecified hemorrhoids; I25.10 Atherosclerotic heart disease of native coronary artery without angina pectoris; R16.1 Splenomegaly, not elsewhere classified; D75.1 Secondary polycythemia; E87.6 Hypokalemia; Z86.73 Personal history of transient ischemic attack (TIA), and cerebral infarction without residual deficits; Z90.710 Acquired absence of both cervix and uterus; Z90.12 Acquired absence of left breast and nipple; Z90.49 Acquired absence of other specified parts of digestive tract; Z79.82 Long term (current) use of aspirin; Z79.899 Other long term (current) drug therapy; Z88.0 Allergy status to penicillin; Z88.2 Allergy status to sulfonamides; Z88.8 Allergy status to other drugs, medicaments and biological substances; Z91.041 Radiographic dye allergy status; Z82.49 Family history of ischemic heart disease and other diseases of the circulatory system

== ENCOUNTER 2018-05-03 16:48 | Inpatient (IN) | payer MEDICARE, OTHER ==
[~2018-05-03] VITALS: Ht 157.5 cm; Wt 55.8 kg
[2018-05-03 16:52] VITALS: BP 142/54
[2018-05-03 18:35] LABS: APTT 34.7 Seconds (25.0-31.3); INR 1.1; PROTIME 11.1 Seconds (9.20-11.50)
[2018-05-03 18:58] LABS: HEMATOCRIT 50.1 % (37.0-47.0); HEMOGLOBIN 15.3 gm/dL (12.0-15.0); MCH 27.4 pg (26.0-34.0); MCHC 30.6 g/dL (28.0-37.0); MCV 89.8 fL (80.0-100.0); MPV 7.2 fl. (7.2-11.1); NUCLEATED RBCS 0 /100WBC; PLATELET COUNT* 391 thou/uL (150-400); RBC 5.58 mil/uL (4.20-5.00); RDW-CV 18.3 % (10.5-14.5); WBC 10.9 thou/uL (4.0-11.0)
[2018-05-03 19:10] LABS: ANION GAP 7 mmol/L (7-16); BUN 13 mg/dL (7-18); CALCIUM 8.7 mg/dL (8.5-10.1); CHLORIDE 103 mmol/L (98-107); CO2 28 mmol/L (21-32); GLUCOSE 105 mg/dL (70-99); POTASSIUM 3.5 mmol/L (3.5-5.1); SODIUM 138 mmol/L (136-145)
[2018-05-03 19:21] LABS: ALKALINE PHOSPHATASE 111 U/L (46-116); LIPASE 130 U/L (73-393); MAGNESIUM 2.2 mg/dL (1.8-2.4); NT-PRO BRAIN NAT PEPTIDE 409 pg/mL (<300); SGOT 29 U/L (15-37); SGPT 21 U/L (30-65); TOTAL BILIRUBIN 0.8 mg/dL (<0.1-1.0); TOTAL PROTEIN 6.6 g/dL (6.4-8.2); TROPONIN-I LEVEL <0.06 ng/mL (<0.06)
[2018-05-03 19:42] LABS: ABSOLUTE EOSINOPHILS 0.1 thou/uL (0.0-0.7); ABSOLUTE LYMPHOCYTES 1.7 thou/uL (0.8-5.3)
[2018-05-03 19:43] LABS: ANISOCYTOSIS 1+; MICROCYTES Occasional; PLATELET ESTIMATE ADEQUATE
[2018-05-03 19:44] LABS: LARGE PLATELETS RARE
[2018-05-03 20:15] VITALS: BP 142/91
[2018-05-04] VITALS: BP 137/44
[2018-05-04 04:00] VITALS: BP 125/53
[2018-05-04 08:00] VITALS: BP 132/64
[2018-05-04 11:58] VITALS: BP 142/54
--- NOTE | 2018-05-04 13:45 | EKG ---
[place] [address] ELECTROCARDIOGRAM REPORT Name: IVAN STONER Room: [address] ADM IN M.R.#: [id number] Admission: 05/03/18 Attend Phys: Jake Strickland MD Discharge: Date of : 30 Report #: [id number] THIS REPORT FOR: //name// [facility] ED Test Date: 2018-05-03 Test Time: 16:55:33 Pat Name: IVAN STONER Department: Room: [facility] Gender: F Aprn: Tang GARCIA : 1930 Requested By: Edi Cleaning Order Number: [id number] MD: Kurt Lagunas Measurements Intervals [place] Rate: 71 P: 81 ND: 159 QRS: 44 QRSD: 132 T: 90 QT: 468 QTc: 509 Interpretive Statements Sinus rhythm Probable left atrial enlargement Left bundle branch block Baseline wander in lead(s) I,II,aVR,V1 Compared to ECG 09/02/2017 17:08:13 No significant changes Electronically Signed On 05-04-2018 13:45:04 SERVICE GREETER by Kurt Lagunas [email or web address] <ELECTRONICALLY SIGNED> By: Kurt Lagunas MD, FAC 05/04/18 1345 1655 1655 Kurt Lagunas MD, [facility] /EPI
[2018-05-04 15:44] VITALS: BP 142/59
[2018-05-04 20:00] VITALS: BP 136/93
[2018-05-05 00:05] VITALS: BP 142/62
[2018-05-05 04:38] VITALS: BP 112/67
[2018-05-05 05:26] LABS: HEMATOCRIT 48.3 % (37.0-47.0); HEMOGLOBIN 14.7 gm/dL (12.0-15.0); MCH 27.7 pg (26.0-34.0); MCHC 30.4 g/dL (28.0-37.0); MCV 91.1 fL (80.0-100.0); MPV 7.4 fl. (7.2-11.1); RBC 5.31 mil/uL (4.20-5.00); RDW-CV 18.2 % (10.5-14.5); WBC 15.4 thou/uL (4.0-11.0)
[2018-05-05 06:12] LABS: ALBUMIN 2.5 g/dL (3.4-5.0); CALCIUM 8.4 mg/dL (8.5-10.1); CREATININE 1.2 mg/dL (0.6-1.3); TOTAL BILIRUBIN 0.3 mg/dL (<0.1-1.0); TOTAL PROTEIN 5.8 g/dL (6.4-8.2)
[2018-05-05 09:00] VITALS: BP 152/56
[2018-05-05] MEDS ORDERED: AZITHROMYCIN 2250 MG PO (09:50)
[2018-05-05] MEDS ORDERED: CEFDINIR300 MG PO (09:50)
[2018-05-05 10:25] VITALS: BP 152/56
--- NOTE | 2018-05-05 13:54 | CON ---
[address] [address] CONSULTATION Name: RICHMOND STONERRimma Pagan Room: [address] IN M.R.#: [id number] Admission: 05/03/18 Attend Phys: Jake Strickland MD Discharge: 05/05/18 Date of : 30 Report #: [id number] THIS REPORT FOR: //name// CC: [facility] physician/PCP Jake RUIZ DATE OF SERVICE: 05/04/2018 HISTORY OF PRESENT ILLNESS: The patient is an 87-year-old white female who I was asked to see in the hospital today after she complained of being short of breath. The patient has had multiple hospitalizations here at [facility]. She was actually seen by my partner, Dr. Tidwell, back in 2014, when she complained of being short of breath. She has a history of paroxysmal supraventricular tachycardia and previously was followed by Dr. Hernandez. She has been on verapamil in the past. Recently, she saw my nurse practitioner, Sofie Torres, in the office. The patient was actually admitted here to [facility] in August of this year with a chest pain that was felt to be noncardiac. The patient had an echocardiogram in May of this year that showed a normal ejection fraction. The patient states she has actually been doing well, although she has had a cough. She does become short of breath with exertion. She notes that yesterday she was sitting in a chair, when she got up out of the chair. She then apparently fell down. Her brought her to the Emergency Room. She was admitted. She notes occasional racing of her heart, but she denies losing consciousness. She has had no fever or bleeding. She denies any significant chest pain. She does complain of fatigue. PAST MEDICAL HISTORY: She had previous cholecystectomy, hysterectomy, cataract extraction. She has a history of hypertension. She has had previous mastectomy for breast cancer. She has a history of thrombocytosis, chronic kidney disease. MEDICATIONS: Consist of aspirin, Crestor, Lasix, carvedilol, amlodipine, isosorbide, hydralazine. ALLERGIES: SHE HAS INTOLERANCE TO SULFA DRUGS AND PENICILLIN. FAMILY HISTORY: Negative for heart disease. SOCIAL HISTORY: She is . She and her live in [place]. There is no history of smoking or alcohol abuse. Her is actually a patient of mine. REVIEW OF SYSTEMS: No history of stroke, asthma, peptic ulcer disease. She has chronic kidney disease, history of breast cancer, no psychiatric illness [place] [address] CONSULTATION Name: IVAN STONER Room: [address]#: [id number] Admission: 05/03/18 Attend Phys: Jake Strickland MD Discharge: 05/05/18 Date of : 30 Report #: [id number] PHYSICAL EXAMINATION: GENERAL: Revealed an elderly frail appearing female, lying in bed. She appeared in no acute distress. VITAL SIGNS: Showed a blood pressure of 140/60, pulse 70. She is afebrile. HEENT: She was anicteric, conjunctiva pink. Mucous membranes moist. NECK: Veins do not appear distended. No carotid bruits. Neck supple. CHEST: Clear to auscultation. CARDIOVASCULAR: Regular rate and rhythm. No significant murmur. ABDOMEN: Soft, nontender. EXTREMITIES: Had no edema. Dorsalis pedis pulse could not be palpated. SKIN: Cool and dry. NEUROLOGIC: Nonfocal. LYMPH: No adenopathy. MUSCULOSKELETAL: No joint effusion. RADIOLOGICAL DATA: ECG showed a sinus rhythm with a left bundle branch block. Her workup, she had portable chest x-ray in the Emergency Room yesterday that showed normal heart size, clear lung telles. Her previous carotid Doppler study in July showed a mild plaque, but no high grade stenosis. LABORATORY DATA: Sodium 139, creatinine 1.1. Liver function studies were normal. Troponin 0.06. BNP 409. White blood cell count 11.9, hemoglobin 15. IMPRESSION AND RECOMMENDATIONS: 1. Fall. Suspect loss of balance. Recommend no cardiac evaluation. 2. Shortness of breath. Reason unclear. Recommend no further cardiac evaluation. 3. Hypertension. The patient is on a beta parvin, calcium pavrin and hydralazine. 4. Hyperlipidemia. The patient is on a statin drug. 5. History of breast cancer. 6. History of thrombocytosis. <ELECTRONICALLY SIGNED> By: Kurt Lagunas MD, FACC 05/05/18 1354 0901 1112David Sophia Lagunas MD, FACC /nt
== END 2018-05-05 12:31 | disposition home or self-care (01) | DRG 871 ==
LOC: M.ERS 16:48 → M.2W 18:42 → M.TBA-ER 18:42 → M.2W 19:52
PROVIDERS: Family Medicine; Internal Medicine
DX: A41.9 Sepsis, unspecified organism (principal); J18.1 Lobar pneumonia, unspecified organism; G31.84 Mild cognitive impairment of uncertain or unknown etiology; N18.9 Chronic kidney disease, unspecified; I12.9 Hypertensive chronic kidney disease with stage 1 through stage 4 chronic kidney disease, or unspecified chronic kidney disease; E78.5 Hyperlipidemia, unspecified; M19.90 Unspecified osteoarthritis, unspecified site; W19.XXXA Unspecified fall, initial encounter; Z86.73 Personal history of transient ischemic attack (TIA), and cerebral infarction without residual deficits; Z79.899 Other long term (current) drug therapy; Z88.0 Allergy status to penicillin; Z88.2 Allergy status to sulfonamides; Z88.8 Allergy status to other drugs, medicaments and biological substances; Z91.041 Radiographic dye allergy status; Z90.49 Acquired absence of other specified parts of digestive tract; Z90.710 Acquired absence of both cervix and uterus; Z90.10 Acquired absence of unspecified breast and nipple; Y93.89 Activity, other specified; Z79.2 Long term (current) use of antibiotics; Y92.89 Other specified places as the place of occurrence of the external cause; Y99.8 Other external cause status; Z85.3 Personal history of malignant neoplasm of breast; Z66 Do not resuscitate

== ENCOUNTER 2018-06-02 13:24 | Emergency (ER) | payer MEDICARE, OTHER ==
[~2018-06-02] VITALS: Ht 154.9 cm; Wt 52.2 kg
[~2018-06-02 13:24] MED LIST changes: +AZITHROMYCIN 2250 MG PO; +CEFDINIR300 MG PO
[2018-06-02 13:52] LABS: URINE BILIRUBIN NEGATIVE (Negative); URINE BLOOD NEGATIVE (Negative); URINE CLARITY CLEAR; URINE COLOR YELLOW; URINE GLUCOSE-RANDOM NEGATIVE (Negative); URINE KETONES NEGATIVE (Negative); URINE LEUKOCYTES-REFLEX TRACE (Negative); URINE NITRITE-REFLEX NEGATIVE (Negative); URINE PROTEIN NEGATIVE (Negative); URINE UROBILINOGEN 0.2 E.U./dl (0.2-1.0)
[2018-06-02 14:03] LABS: HEMOGLOBIN 15.8 gm/dL (12.0-15.0); MCH 26.6 pg (26.0-34.0); MCHC 30.3 g/dL (28.0-37.0); MCV 87.7 fL (80.0-100.0); MPV 7.2 fl. (7.2-11.1); NUCLEATED RBCS 0 /100WBC; PLATELET COUNT* 524 thou/uL (150-400); RBC 5.93 mil/uL (4.20-5.00); RDW-CV 18.1 % (10.5-14.5); WBC 17.3 thou/uL (4.0-11.0)
[2018-06-02 14:06] LABS: BACTERIA-REFLEX None Seen /HPF (None Seen); CASTS None Seen /LPF (None Seen); CRYSTALS None Seen /LPF (None Seen); RENAL EPITHELIAL CELLS 0-3 Few /LPF (None Seen); SQUAMOUS 0-3 Few /LPF (0-3); URINE RBC None Seen /HPF (0-2); URINE WBC-REFLEX 0-5 Rare /HPF (0-5)
[2018-06-02 14:19] LABS: CALCIUM 8.3 mg/dL (8.5-10.1); POTASSIUM 4.3 mmol/L (3.5-5.1)
[2018-06-02 14:24] LABS: ALBUMIN 2.9 g/dL (3.4-5.0); TOTAL PROTEIN 6.2 g/dL (6.4-8.2)
[2018-06-02 14:32] LABS: ABSOLUTE EOSINOPHILS 0.3 thou/uL (0.0-0.7); ABSOLUTE LYMPHOCYTES 2.1 thou/uL (0.8-5.3); ABSOLUTE MONOCYTES 0.3 thou/uL (0.0-1.2); ABSOLUTE NEUTROPHILS 14.5 thou/uL (1.6-8.1); ANISOCYTOSIS 2+; ATYPICAL LYMPHS 6 %
[2018-06-02 14:33] LABS: PLATELET ESTIMATE ADEQUATE
[2018-06-02 16:50] VITALS: BP 170/72
--- NOTE | 2018-06-03 08:58 | EKG ---
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: ROBERT : 1930 Requested By: Melissa Christensen Order Number: [id number] MD: Kurt Lagunas Measurements Intervals [place] Rate: 72 P: 75 AK: 152 QRS: 19 QRSD: 121 T: 84 QT: 462 QTc: 506 Interpretive Statements Sinus rhythm Left bundle branch block Compared to ECG 05/03/2018 16:55:33 No significant changes Electronically Signed On 06-03-2018 8:58:32 MUD TANK OPERATOR by Kurt Lagunas [email or web address] <ELECTRONICALLY SIGNED> By: Kurt Lagunas MD, [facility] 06/03/18 0858 D: [id number] 29 Kurt Lagunas MD, FACC /EPI
== END 2018-06-02 16:46 | disposition home or self-care (01) ==
LOC: M.ERS 13:24
PROVIDERS: Physician Assistant
DX: R10.9 Unspecified abdominal pain (principal); M54.5 Low back pain; M54.6 Pain in thoracic spine; M19.90 Unspecified osteoarthritis, unspecified site; I12.9 Hypertensive chronic kidney disease with stage 1 through stage 4 chronic kidney disease, or unspecified chronic kidney disease; N18.9 Chronic kidney disease, unspecified; Z90.49 Acquired absence of other specified parts of digestive tract; Z90.710 Acquired absence of both cervix and uterus; Z90.12 Acquired absence of left breast and nipple; Z88.0 Allergy status to penicillin; Z88.2 Allergy status to sulfonamides; Z91.041 Radiographic dye allergy status; Z88.8 Allergy status to other drugs, medicaments and biological substances

== ENCOUNTER 2018-08-11 14:47 | Inpatient (IN) | payer MEDICARE, OTHER ==
[~2018-08-11] VITALS: Ht 152.4 cm; Wt 52.8 kg
[2018-08-11 14:52] VITALS: BP 187/67
[2018-08-11 15:19] LABS: URINE BLOOD NEGATIVE (Negative); URINE CLARITY CLEAR; URINE COLOR YELLOW; URINE GLUCOSE-RANDOM NEGATIVE (Negative); URINE KETONES TRACE (Negative); URINE LEUKOCYTES-REFLEX TRACE (Negative); URINE NITRITE-REFLEX NEGATIVE (Negative); URINE PROTEIN 1+ (Negative); URINE SPECIFIC GRAVITY 1.025 (1.005-1.030); URINE UROBILINOGEN 0.2 E.U./dl (0.2-1.0)
[2018-08-11 15:21] LABS: ICTOTEST (BILI CONFIRMATORY) Negative (Negative); URINE BILIRUBIN 1+ (Negative)
[2018-08-11 15:27] LABS: HYALINE CASTS 4-10 Moderate /LPF (None Seen); SQUAMOUS 4-10 Moderate /LPF (0-3)
[2018-08-11 15:28] LABS: BACTERIA-REFLEX 1-9 Few /HPF (None Seen); CRYSTALS None Seen /LPF (None Seen); MUCUS 0-3 Light strn/LPF (None Seen); URINE WBC-REFLEX 6-15 Few /HPF (0-5)
[2018-08-11 15:29] LABS: URINE RBC None Seen /HPF (0-2)
[2018-08-11 15:46] LABS: HEMATOCRIT 51.9 % (37.0-47.0); HEMOGLOBIN 15.5 gm/dL (12.0-15.0); MCH 25.7 pg (26.0-34.0); MCV 85.9 fL (80.0-100.0); MPV 7.1 fl. (7.2-11.1); NUCLEATED RBCS 0 /100WBC; PLATELET COUNT* 517 thou/uL (150-400); RBC 6.04 mil/uL (4.20-5.00); RDW-CV 19.4 % (10.5-14.5); WBC 16.4 thou/uL (4.0-11.0)
[2018-08-11 15:55] LABS: APTT 37.6 Seconds (25.0-31.3); INR 1.2; PROTIME 12.5 Seconds (9.20-11.50)
[2018-08-11 16:19] LABS: ALBUMIN 2.9 g/dL (3.4-5.0); CALCIUM 8.4 mg/dL (8.5-10.1); CREATININE 1.1 mg/dL (0.6-1.3); POTASSIUM 4.1 mmol/L (3.5-5.1); TOTAL BILIRUBIN 0.8 mg/dL (<0.1-1.0); TOTAL PROTEIN 6.1 g/dL (6.4-8.2)
[2018-08-11 16:23] LABS: ABSOLUTE EOSINOPHILS 0.5 thou/uL (0.0-0.7); ABSOLUTE LYMPHOCYTES 0.7 thou/uL (0.8-5.3); ABSOLUTE MONOCYTES 0.7 thou/uL (0.0-1.2); ABSOLUTE NEUTROPHILS 14.6 thou/uL (1.6-8.1)
[2018-08-11 16:24] LABS: ANISOCYTOSIS 1+; CLUMPED PLTS RARE; PLATELET ESTIMATE INCREASED
[2018-08-11 16:25] LABS: MICROCYTES Occasional
[2018-08-11 20:25] VITALS: BP 146/59
[2018-08-11 20:55] VITALS: BP 172/70
[2018-08-12] VITALS (7 sets, daily range): BP systolic 139–167; BP diastolic 59–70
--- NOTE | 2018-08-12 10:04 | EKG ---
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: : 1930 Requested By: Melissa Christensen Order Number: [id number] MD: Baldemar Smith Measurements Intervals [place] Rate: 71 P: 77 AL: 146 QRS: 59 QRSD: 120 T: 17 QT: 501 QTc: 545 Interpretive Statements Sinus rhythm Probable left atrial enlargement Left ventricular hypertrophy Probable anterior infarct, age indeterminate Prolonged QT interval Compared to ECG 06/02/2018 15:30:44 Left ventricular hypertrophy now present Myocardial infarct finding now present Prolonged QT interval now present Left bundle-branch block no longer present Electronically Signed On 08-12-2018 10:04:20 CDT by Baldemar Smith [email or web address] <ELECTRONICALLY SIGNED> By: Baldemar Smith MD, FACC 08/12/18 1004 1527 1527 Baldemar Smith MD, [facility] /EPI
--- NOTE | 2018-08-12 10:04 | EKG ---
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: : 1930 Requested By: Melissa Christensen Order Number: [id number] MD: Baldemar Smith Measurements Intervals [place] Rate: 74 P: 77 [place]: 143 QRS: 29 QRSD: 124 T: 108 QT: 467 QTc: 519 Interpretive Statements Sinus rhythm Probable left atrial enlargement Left bundle branch block Baseline wander in lead(s) V1 Compared to ECG 06/02/2018 15:30:44 No significant changes Electronically Signed On 08-12-2018 10:04:29 CDT by Baldemar Smith [email or web address] <ELECTRONICALLY SIGNED> By: Baldemar Smith MD, FACC 08/12/18 1004 1800 1800 Baldemar Smith MD, [facility] /EPI
[2018-08-12] MEDS ORDERED: CEFUROXIME500 MG PO (12:18)
--- NOTE | 2018-08-12 16:41 | 2DMMODE ---
[place] [address] 2 D/M-MODE ECHOCARDIOGRAM Name: IVAN STONER Ej Room: [address] ADM IN [facility]#: [id number] Admission: 08/11/18 Attend Phys: Arlene Mock MD Discharge: Date of : 30 Date of Service: 08/12/18 [facility] Report #: [id number] THIS REPORT FOR: //name// APPROVED REPORT Study performed: 08/12/2018 15:28:39 EXAM: Comprehensive 2D, Doppler, and color-flow Echocardiogram Patient Location: In-Patient Room #: [facility] Status: routine BSA: 1.47 HR: 81 bpm BP: 164/68 mmHg Rhythm: NSR Other Information Study Quality: Good Indications Pulmonary Embolism 2D Dimensions IVSd: 15.48 (7-11mm) LVOT Diam: 20.73 (18-24mm) LVDd: 38.16 mm PWd: 10.12 (7-11mm) Ascending Ao: 27.20 (22-36mm) LVDs: 20.91 (25-40mm) Aortic Root: 29.52 mm Volumes Left Atrial Volume (Systole) LA ESV Index: 32.00 mL/m2 Aortic Valve AoV Peak Arash.: 1.43 m/s AO Peak Gr.: 8.18 mmHg LVOT Max P.52 mmHg AO Mean Gr.: 4.66 mmHg LVOT Mean P.78 mmHg LVOT Max V: 0.94 m/s AO V2 VTI: 30.16 cm LVOT Mean V: 0.62 m/s ASA (VTI): 2.40 cm2 LVOT V1 VTI: 21.43 cm Mitral Valve E/A Ratio: 0.61 MV Decel. Time: 184.40 ms MV E Max Arash.: 0.82 m/[place] [address] 2 D/M-MODE ECHOCARDIOGRAM Name: IVAN STONER Room: [address] IN .R.#: [id number] Admission: 08/11/18 Attend Phys: Arlene Mock MD Discharge: Date of : 30 Date of Service: 08/12/18 [facility] Report #: [id number] MV PHT: 53.48 ms MVA (PHT): 4.11 cm2 TDI E/Lateral E': 9.11 E/Medial E': 10.25 Medial E' Arash.: 0.08 m/s Lateral E' Arash.: 0.09 m/s Pulmonary Valve PV Peak Arash.: 1.08 m/s PV Peak Gr.: 4.63 mmHg Tricuspid Valve RAP Estimate: 5.00 mmHg TR Peak Gr.: 26.52 mmHg RVSP: 31.00 mmHg PA Pressure: 31.00 mmHg Left Ventricle The left ventricle is normal size. There is normal LV segmental wall motion. Mild concentric left ventricular hypertrophy. Left ventricular systolic function is normal. The left ventricular ejection fraction is within the normal range. LVEF is 60-65%. Grade I - abnormal relaxation pattern. Right Ventricle The right ventricle is normal size. The right ventricular systolic function is normal. Atria The left atrium size is dilated Right atrium is dilated. Aortic Valve The aortic valve is normal in structure. No aortic regurgitation is present. There is no aortic valvular stenosis. Mitral Valve There is mitral annular calcification. There is no mitral valve regurgitation noted. No evidence of mitral valve stenosis. Tricuspid Valve The tricuspid valve is normal in structure. Trace tricuspid regurgitation. Mild pulmonary hypertension. Pulmonic Valve The pulmonary valve is normal in structure. There is no pulmonic valvular [place] [address] 2 D/M-MODE ECHOCARDIOGRAM Name: IVAN STONER Room: [address] IN [facility]#: [id number] Admission: 08/11/18 Attend Phys: Arlene Mock MD Discharge: Date of : 30 Date of Service: 08/12/18 1640 Report #: [id number] Great Vessels The aortic root is normal in size. IVC is normal in size and collapses >50% with inspiration. Pericardium There is no pericardial effusion. <Conclusion> The left ventricle is normal size. LVEF is 60-65%. There is normal LV segmental wall motion. The right ventricle is normal size. The right ventricular systolic function is normal. The left atrium size is dilated Right atrium is dilated. There is no aortic valvular stenosis. No aortic regurgitation is present. Trace tricuspid regurgitation. Mild pulmonary hypertension. Grade I - abnormal relaxation pattern. Mild concentric left ventricular hypertrophy. <ELECTRONICALLY SIGNED> By: Baldemar Smith MD, FACC 08/12/18 1640 1640 1640 Baldemar Smith MD, FACC /INF
[2018-08-13] VITALS: BP 132/48
[2018-08-13 04:00] VITALS: BP 142/61
[2018-08-13 05:27] LABS: ABSOLUTE EOSINOPHILS 0.1 thou/uL (0.0-0.7); ABSOLUTE LYMPHOCYTES 0.9 thou/uL (0.8-5.3); ABSOLUTE MONOCYTES 0.7 thou/uL (0.0-1.2); ABSOLUTE NEUTROPHILS 18.1 thou/uL (1.6-8.1); BASOPHILS 0.1 %; EOSINOPHILS 0.4 %; HEMATOCRIT 49.4 % (37.0-47.0); HEMOGLOBIN 14.3 gm/dL (12.0-15.0); LYMPHOCYTES 4.7 %; MCH 25.4 pg (26.0-34.0); MCHC 29.1 g/dL (28.0-37.0); MCV 87.5 fL (80.0-100.0); MONOCYTES 3.4 %; MPV 7.1 fl. (7.2-11.1); NUCLEATED RBCS 0 /100WBC; PLATELET COUNT* 564 thou/uL (150-400); POLYS 91.4 %; RBC 5.64 mil/uL (4.20-5.00); RDW-CV 19.1 % (10.5-14.5); WBC 19.8 thou/uL (4.0-11.0)
[2018-08-13 05:34] LABS: CALCIUM 7.8 mg/dL (8.5-10.1); CREATININE 0.9 mg/dL (0.6-1.3); POTASSIUM 4.1 mmol/L (3.5-5.1)
[2018-08-13 08:01] VITALS: BP 106/64
[2018-08-13 12:21] VITALS: BP 117/76
[2018-08-13 15:35] VITALS: BP 119/49
[2018-08-13 19:30] VITALS: BP 164/58
[2018-08-14] VITALS: BP 128/51
[2018-08-14 04:00] VITALS: BP 138/56
[2018-08-14 08:01] VITALS: BP 120/63
[2018-08-14 08:36] VITALS: BP 120/63
--- NOTE | 2018-08-14 12:11 | CON ---
[address] [address] CONSULTATION Name: IVAN STONER Ej Room: [address] IN M.R.#: [id number] Admission: 08/11/18 Attend Phys: Arlene Mock MD Discharge: Date of : 30 Report #: [id number] THIS REPORT FOR: //name// CC: Amy Mock DATE OF SERVICE: 08/13/2018 REASON FOR CONSULTATION: Shortness of breath, abnormal V/Q scan. HISTORY OF PRESENT ILLNESS: This is a pleasant 87-year-old female patient. Her presentation initially was vague; however, upon further clarification, she told me she came in for shortness of breath, cough and wheezes in addition to cold symptoms. The patient told me since she was a child, she had some breathing difficulties. She had been using inhaler all her life. According to her, she had bad lungs. It sounded like she had history of asthma, although she did not use the word especially with the fact that she has inhalers at home and she had recurrent bronchitis by history. She presented with cold symptoms, runny nose, sore throat, cough that got worse, associated shortness of breath and noisy breathing. She presented to the ER. She also reported some discomfort in her ribs. She denied any lower extremity edema or swelling. She reported actually sick contact. She had no nausea, no vomiting, but she felt congested, unable to bring up cough. She had no fever or chills. Her initial chest x-ray did not show acute pathology. A CT scan of the chest done without contrast showed some nonspecific nodular infiltrate and that a V/Q scan was done that demonstrated intermediate probability for pulmonary embolus. She is feeling actually better. She has no more pain. The cough is still there, but the shortness of breath actually resolved. ALLERGIES: SULFA, IODINE, NITROFURANTOIN, PENICILLIN. HOME MEDICATIONS: She is on aspirin, hydralazine, rosuvastatin, hydroxyurea, Coreg, amlodipine, cefuroxime. PAST MEDICAL HISTORY: Hysterectomy, left mastectomy, tonsillectomy, cholecystectomy, cataract surgery, hernia repair, thrombocytosis, diverticulosis, hypertension, TIA, arthritis, gallbladder removal. PAST SURGICAL HISTORY: As above. FAMILY HISTORY: Positive for chronic lung disease in her mother. Also, her mother [place] [address] CONSULTATION Name: IVAN STONER Room: [address]#: [id number] Admission: 08/11/18 Attend Phys: Arlene Mock MD Discharge: Date of : 30 Report #: [id number] SOCIAL HISTORY: Never smoked in her life, although her smoked for a long time. She has secondhand smoke exposure. She denied any drug use or alcohol use. REVIEW OF SYSTEMS: She denied fever, chills, blurring of vision, visual changes, headache, tinnitus, dysphagia, dysarthria. She denied any palpitations. She denied any difficulty with urination, frequency, urgency. Denied any joint pain. Denied any depression, thyroid disease. A 12-point review of systems reviewed with the patient and negative as mentioned above. PHYSICAL EXAMINATION: VITAL SIGNS: She was on room air, sitting in chair comfortable, saturation more than 90%, pulse rate of 76, afebrile. Blood pressure 106/64. HEAD: Normocephalic, atraumatic. EYES: Pupils reactive to light. Not pale, not jaundice. EARS: External ear looks healthy and normal. ORAL CAVITY: Moist mucous membrane. Mallampati of 2. NECK: Full range of movement. Nontender. No palpable lymph node. CHEST: Diminished air movement bilaterally, prolonged expiratory phase. No wheezing, no crackles. HEART: S1, S2. No murmur, no gallop. ABDOMEN: Benign, soft, lax, nontender, positive bowel sounds. No masses felt. EXTREMITIES: Lower extremity, trace edema, no calf tenderness. PSYCHIATRIC: Mood and affect slightly anxious. Good insight and judgment. NEUROLOGIC: Moving 4 extremities spontaneously. No focal weakness. SKIN: Normal for age and race. LYMPHATICS: No palpable lymph node. LABORATORY DATA: Her white blood count was 16.4, hemoglobin 15.5, platelets of 517. Her INR is 1.2. Her sodium was 139, potassium 4.1, chloride 108. Troponin negative. Her echocardiogram demonstrated preserved EF with grade 1 diastolic dysfunction. Mild pulmonary hypertension. Her chest x-ray was clear. CT scan of the chest showed nodular infiltrates. Her venous Doppler ultrasound of lower extremities is negative for DVT. Her V/Q scan intermediate probability. IMPRESSION: 1. Cough, shortness of breath. 2. Bronchospasm. 3. History of chronic lung disease, suspect asthma per the history. She is already on inhalers at home for a long time. 4. Abnormal V/Q scan. 5. Bronchitis. 6. [place] [address] CONSULTATION Name: IVAN STONER Room: [address] IN M.R.#: [id number] Admission: 08/11/18 Attend Phys: Arlene Mock MD Discharge: Date of : 30 Report #: [id number] The patient's symptoms highly suggestive of bronchitis, possibly pneumonia with symptoms preceded by upper respiratory tract infection followed by cough and wheezes. Her symptoms are already improving. I am going to give her steroids and would continue the antibiotic and she needs to be scheduled for nebulization treatment. She tells me she actually has bronchodilators at home. Regarding the V/Q scan, is intermediate probability with negative Doppler ultrasound. Given her age and frail status, she will be high risk for anticoagulation due to risk of falls, especially in the setting where her symptoms can be explained by another pathology. Discussed with Dr. Romero. Thank you for the consult. <ELECTRONICALLY SIGNED> By: Mao Sanchez MD 08/14/18 1211 1016 0034Dbry Larose MD /nt
[2018-08-14] MEDS ORDERED: AUGMENTIN 500-1 EACH PO (12:54)
[2018-08-14] MEDS ORDERED: PREDNISONE 10 M10 MG PO (12:55)
[2018-08-14] MEDS ORDERED: ALBUTEROL2.5 MG/31 INH (12:58)
[2018-08-14] MEDS ORDERED: PROTONIX40 M1 PO (12:58)
[2018-08-14] MEDS ORDERED: TYLENOL325 MG PO (13:01)
[2018-08-14] MEDS ORDERED: COLACE100 MG PO (13:02)
[2018-08-14] MEDS ORDERED: MIRALAX17 GM PO (13:03)
== END 2018-08-14 13:24 | disposition home or self-care (01) | DRG 202 ==
LOC: M.ERS 14:47 → M.TBA-ER 17:28 → M.2W 17:28
PROVIDERS: Internal Medicine; Physician Assistant; ADMIT Family Medicine
DX: J20.9 Acute bronchitis, unspecified (principal); N39.0 Urinary tract infection, site not specified; K57.90 Diverticulosis of intestine, part unspecified, without perforation or abscess without bleeding; M19.90 Unspecified osteoarthritis, unspecified site; Z77.22 Contact with and (suspected) exposure to environmental tobacco smoke (acute) (chronic); N18.9 Chronic kidney disease, unspecified; I12.9 Hypertensive chronic kidney disease with stage 1 through stage 4 chronic kidney disease, or unspecified chronic kidney disease; K59.00 Constipation, unspecified; D75.1 Secondary polycythemia; K21.9 Gastro-esophageal reflux disease without esophagitis; Z88.0 Allergy status to penicillin; Z88.2 Allergy status to sulfonamides; Z88.8 Allergy status to other drugs, medicaments and biological substances; Z86.73 Personal history of transient ischemic attack (TIA), and cerebral infarction without residual deficits; Z91.041 Radiographic dye allergy status; Z90.710 Acquired absence of both cervix and uterus; Z90.12 Acquired absence of left breast and nipple; Z90.49 Acquired absence of other specified parts of digestive tract; Z98.49 Cataract extraction status, unspecified eye; Z80.1 Family history of malignant neoplasm of trachea, bronchus and lung; Z79.82 Long term (current) use of aspirin; Z79.899 Other long term (current) drug therapy

== ENCOUNTER → 2018-11-20 | Outpatient (CLI) | payer MEDICARE, OTHER ==
[~2018-11-20] MED LIST changes: +ALBUTEROL2.5 MG/31 INH; +AUGMENTIN 500-1 EACH PO; +CEFUROXIME500 MG PO; +COLACE100 MG PO; +MIRALAX17 GM PO; +PROTONIX40 M1 PO
== END ==
LOC: M.MRI 13:14
DX: G31.9 Degenerative disease of nervous system, unspecified (principal); I99.8 Other disorder of circulatory system

== ENCOUNTER → 2019-01-05 | Outpatient (CLI) | payer MEDICARE, OTHER | LOC: M.LAB 14:19 | DX: G30.9 Alzheimer's disease, unspecified (principal); F02.80 Dementia in other diseases classified elsewhere, unspecified severity, without behavioral disturbance, psychotic disturbance, mood disturbance, and anxiety; Z86.73 Personal history of transient ischemic attack (TIA), and cerebral infarction without residual deficits ==

== ENCOUNTER → 2019-01-13 | Outpatient (CLI) | payer MEDICARE, OTHER | LOC: M.MRI 01-05 17:38 | DX: I63.9 Cerebral infarction, unspecified (principal); G30.9 Alzheimer's disease, unspecified; F02.80 Dementia in other diseases classified elsewhere, unspecified severity, without behavioral disturbance, psychotic disturbance, mood disturbance, and anxiety; Z86.73 Personal history of transient ischemic attack (TIA), and cerebral infarction without residual deficits ==

== ENCOUNTER 2019-02-02 15:54 | Inpatient (IN) | payer MEDICARE, OTHER ==
[~2019-02-02] VITALS: Ht 152.4 cm; Wt 42.2 kg
[~2019-02-02 15:54] MED LIST changes: -ASPIRIN325 PO
[2019-02-02 16:06] VITALS: BP 133/55
[2019-02-02] MEDS ORDERED: ASPIRIN325 PO (16:13)
[2019-02-02 17:14] LABS: HEMATOCRIT 29.5 % (37.0-47.0); MCH 24.7 pg (26.0-34.0); MCHC 30.6 g/dL (28.0-37.0); MCV 80.7 fL (80.0-100.0); MPV 6.4 fl. (7.2-11.1); NUCLEATED RBCS 0 /100WBC; PLATELET COUNT* 731 thou/uL (150-400); RBC 3.65 mil/uL (4.20-5.00); WBC 11.5 thou/uL (4.0-11.0)
[2019-02-02 17:27] LABS: CREATININE 1.3 mg/dL (0.6-1.3); POTASSIUM 4.1 mmol/L (3.5-5.1)
[2019-02-02 17:31] LABS: ALBUMIN 2.1 g/dL (3.4-5.0); TOTAL BILIRUBIN 0.5 mg/dL (<0.1-1.0); TOTAL PROTEIN 5.8 g/dL (6.4-8.2)
[2019-02-02 17:41] LABS: URINE BILIRUBIN NEGATIVE (Negative); URINE BLOOD NEGATIVE (Negative); URINE CLARITY CLEAR; URINE COLOR YELLOW; URINE GLUCOSE-RANDOM NEGATIVE (Negative); URINE KETONES NEGATIVE (Negative); URINE LEUKOCYTES-REFLEX 1+ (Negative); URINE NITRITE-REFLEX NEGATIVE (Negative); URINE PROTEIN 1+ (Negative); URINE SPECIFIC GRAVITY 1.025 (1.005-1.030); URINE UROBILINOGEN 0.2 E.U./dl (0.2-1.0)
[2019-02-02 17:44] LABS: ABSOLUTE EOSINOPHILS 0.2 thou/uL (0.0-0.7); ABSOLUTE LYMPHOCYTES 1.2 thou/uL (0.8-5.3); ABSOLUTE MONOCYTES 0.5 thou/uL (0.0-1.2); ABSOLUTE NEUTROPHILS 9.7 thou/uL (1.6-8.1); ANISOCYTOSIS 3+; OVALOCYTES 1+
[2019-02-02 17:45] LABS: HYPOCHROMASIA 1+; MICROCYTES 1+; PLATELET ESTIMATE INCREASED
[2019-02-02 17:48] LABS: HYALINE CASTS 0-3 Few /LPF (None Seen); SQUAMOUS >10 Many /LPF (0-3)
[2019-02-02 17:49] LABS: CRYSTALS None Seen /LPF (None Seen); MUCUS None Seen strn/LPF (None Seen)
[2019-02-02 17:50] LABS: URINE RBC None Seen /HPF (0-2); URINE WBC-REFLEX 6-15 Few /HPF (0-5)
[2019-02-02 22:28] VITALS: BP 123/57
[2019-02-03] VITALS (8 sets, daily range): BP systolic 120–166; BP diastolic 51–73
[2019-02-03 03:13] LABS: ABSOLUTE BASOPHILS 0.1 thou/uL (0.0-0.2); ABSOLUTE EOSINOPHILS 0.1 thou/uL (0.0-0.7); ABSOLUTE LYMPHOCYTES 1.4 thou/uL (0.8-5.3); ABSOLUTE MONOCYTES 0.7 thou/uL (0.0-1.2); BASOPHILS 0.4 %; EOSINOPHILS 0.4 %; HEMATOCRIT 29.2 % (37.0-47.0); HEMOGLOBIN 9.1 gm/dL (12.0-15.0); LYMPHOCYTES 9.9 %; MCH 24.9 pg (26.0-34.0); MCHC 31.3 g/dL (28.0-37.0); MCV 79.7 fL (80.0-100.0); MONOCYTES 4.9 %; MPV 6.3 fl. (7.2-11.1); NUCLEATED RBCS 0 /100WBC; PLATELET COUNT* 779 thou/uL (150-400); POLYS 84.4 %; RBC 3.66 mil/uL (4.20-5.00); RDW-CV 35.6 % (10.5-14.5); WBC 14.3 thou/uL (4.0-11.0)
[2019-02-03 03:33] LABS: ALBUMIN 2.1 g/dL (3.4-5.0); CALCIUM 8.2 mg/dL (8.5-10.1); CREATININE 1.1 mg/dL (0.6-1.3); POTASSIUM 4.3 mmol/L (3.5-5.1); TOTAL BILIRUBIN 0.4 mg/dL (<0.1-1.0); TOTAL PROTEIN 5.8 g/dL (6.4-8.2)
[2019-02-04 03:40] LABS: ABSOLUTE EOSINOPHILS 0.1 thou/uL (0.0-0.7); ABSOLUTE LYMPHOCYTES 1.4 thou/uL (0.8-5.3); ABSOLUTE MONOCYTES 0.7 thou/uL (0.0-1.2); ABSOLUTE NEUTROPHILS 13.5 thou/uL (1.6-8.1); BASOPHILS 0.3 %; EOSINOPHILS 0.5 %; HEMATOCRIT 28.6 % (37.0-47.0); HEMOGLOBIN 8.9 gm/dL (12.0-15.0); LYMPHOCYTES 9.1 %; MCHC 31.1 g/dL (28.0-37.0); MCV 80.2 fL (80.0-100.0); MONOCYTES 4.3 %; MPV 6.2 fl. (7.2-11.1); NUCLEATED RBCS 0 /100WBC; POLYS 85.8 %; RBC 3.57 mil/uL (4.20-5.00); RDW-CV 36.6 % (10.5-14.5); WBC 15.7 thou/uL (4.0-11.0)
[2019-02-04 03:59] LABS: PLATELET COUNT* 643 thou/uL (150-400)
[2019-02-04 04:01] LABS: POTASSIUM 4.3 mmol/L (3.5-5.1)
[2019-02-04 07:30] VITALS: BP 136/68
--- NOTE | 2019-02-04 11:15 | EKG ---
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
--- NOTE | 2019-02-04 12:15 | CON ---
[address] [address] CONSULTATION Name: IVAN STONER Room: [address] IN M.R.#: [id number] Admission: 02/02/19 Attend Phys: Chaim Romero MD Discharge: Date of : 30 Report #: [id number] THIS REPORT FOR: //name// CC: Chaim Martínez DATE OF SERVICE: 02/03/2019 CLINIC NOTE DIAGNOSIS: Essential thrombocythemia. SUBJECTIVE: The patient is an 88-year-old female who has been followed very closely in the last 2 months after she had missed taking her Hydrea and her platelet count went up to 1,000,500. Most recently, she has been on Hydrea and platelet count started to trend slowly. The patient was admitted yesterday due to weakness, confusion, and poor oral intake. At most recent visit, I advised her to increase Hydrea 500 mg twice a day that was last week. Platelet count upon admission was 731 with a hemoglobin of 9.0 and WBC 11.5. The patient has been complaining of abdominal pain at the epigastric area. The patient underwent a CT scan of the abdomen and pelvis without contrast which showed diverticulosis, a small amount of pelvic ascites, and renal cyst and likely hepatic cyst. Chest x-ray showed no acute abnormalities. CT head also came back age-related findings. By the time of evaluation, the patient was more awake and alert. She continues to have epigastric abdominal pain and tenderness. REVIEW OF SYSTEMS: All systems reviewed. It was negative except the above. PAST MEDICAL HISTORY: Essential thrombocythemia (MPN), dyslipidemia, hypertension, TIA, and osteoarthritis. PAST SURGICAL HISTORY: Hysterectomy, left mastectomy, tonsillectomy, cholecystectomy, and hernia repair. SOCIAL HISTORY: No smoking. No alcohol abuse. No drug abuse. FAMILY HISTORY: Noncontributory. ALLERGIES: SHE IS ALLERGIC TO PENICILLIN, SULFA, AND IODINE. PHYSICAL EXAMINATION: VITAL SIGNS: Today, temperature 36.6, pulse 87, respirations 18, blood pressure is 166/66, and SpO2 was 95% on room air by physical examination. GENERAL: The patient was lying in bed. She was more awake and alert. LUNGS: Decreased [place] [address] CONSULTATION Name: IVAN STONER Room: [address]#: [id number] Admission: 02/02/19 Attend Phys: Chaim Romero MD Discharge: Date of : 30 Report #: [id number] HEART: Regular rate and rhythm. S1, S2 within normal limits. ABDOMEN: The patient had epigastric tenderness. EXTREMITIES: No edema, no cyanosis, and no clubbing. LABORATORY DATA: Today, WBC 14.3, hemoglobin 9.1, and platelets 779. Creatinine 1.1. Calcium is 8.2. Ferritin 741. IMAGING: As mentioned above. ASSESSMENT: An 88-year-old female who has been treated for essential thrombocythemia. The patient last week was advised to increase her Hydrea to control her platelet count. However, she is admitted because of confusion and decreased oral intake. Imaging did not reveal any source of her symptoms. RECOMMENDATIONS: 1. Agree with holding her Hydrea for now. 2. Continue current supportive care. Continue antiemetic medications. We will re-evaluate the patient clinically. Once the patient is more stabilized, I would like to consider switching her from Hydrea to busulfan as a second line treatment for ET as an outpatient. <ELECTRONICALLY SIGNED> By: Breezy Gruber MD 02/04/19 1215 1139 [id number] Gruber MD /nt
[2019-02-04 15:31] VITALS: BP 136/57
[2019-02-04 20:00] VITALS: BP 152/57
[2019-02-05 07:44] VITALS: BP 112/60
--- NOTE | 2019-02-05 15:07 | PATH ---
[address] [address] PATHOLOGY RPT PROCEDURE Name: SANDHYA STONER MELANIE Room: [address] IN M.R.#: [id number] Admission: 02/02/19 Date of : 30 Discharge: Report #: [id number] Path Case #: [id number] [facility] Accession Number: [id number] . 01 Material submitted: . PART A: stomach - ANTRAL BIOPSY FOR H. PYLORI FOR EROSIVE GASTRITIS PART B: stomach - GASTRIC BODY. Modifiers: body . 01 Clinical history: . None provided . 02 Diagnosis: A. Antral biopsy: - Mild nonspecific chronic antral gastritis, negative for Helicobacter pylori organisms and dysplasia. . B. Gastric body: - Mild nonspecific chronic gastritis with mildly ectatic superficial capillaries, negative for Helicobacter pylori organisms and dysplasia. . (STEPHEN:rehan; 02/05/2019) [facility] 02/05/2019 1036 Local . 02 Comment: Special stains (A and B): H. pylori immuno. . (STEPHEN:mml; 02/05/2019) . 02 Electronically signed: . Randy Field MD, Pathologist NPI- [id number] . 01 Gross description: . A. Received in formalin labeled "Lux, Sandhya, antral biopsy for H. pylori," and additionally labeled on the requisition as "for erosive gastritis," is a single segment of munson soft tissue measuring 0.5 cm in maximum dimension. The specimen is entirely submitted in cassette A1. . B. Received in formalin labeled "Lux, Sandhya, gastric body," is a single segment of munson soft tissue measuring 0.6 cm in maximum dimension. The specimen is entirely submitted in cassette B1. (TSD; 02/04/2019) TOB/TOB 02/05/2019 1033 Local . 02 Pathologist provided ICD-10: K29.50 . 02 [place] [address] PATHOLOGY RPT PROCEDURE Name: SANDHYA STONER Room: [address]#: [id number] Admission: 02/02/19 Date of : 30 Discharge: Report #: [id number] Path Case #: [id number] Specimen Comment: A courtesy copy of this report has been sent to Specimen Comment: [phone], , . Specimen Comment: Report sent to ,DR AKINS / DR PEÑA Performed at: [address], [place], [place] [id number] MD Aniket Levine MD Phone: [phone] Performed at: [address] [address] [address], [place], [place] [id number] MD Randy Field MD Phone: [phone]
[2019-02-05 16:00] VITALS: BP 117/36
[2019-02-05 22:00] VITALS: BP 98/68
[2019-02-06 07:05] VITALS: BP 145/50
[2019-02-06 14:21] VITALS: BP 145/50
[2019-02-06 15:52] VITALS: BP 145/50
[2019-02-06] MEDS ORDERED: SEROQUEL 50 MG50 MG PO (16:07)
[2019-02-06] MEDS ORDERED: CIPRO250 M1 PO (16:08)
[2019-02-06 17:12] VITALS: BP 145/50
== END 2019-02-06 17:12 | DRG 368 ==
LOC: M.ERS 15:54 → M.3W 19:29 → M.TBA-ER 19:29 → M.3W 02-03 09:35
PROVIDERS: Nurse Practitioner Family; ADMIT Internal Medicine
PROC: 0DB68ZX Excision of Stomach, Via Natural or Artificial Opening Endoscopic, Diagnostic (ICD-10-PCS; principal; 2019-02-03)
DX: B37.81 Candidal esophagitis (principal); G93.41 Metabolic encephalopathy; N39.0 Urinary tract infection, site not specified; I42.9 Cardiomyopathy, unspecified; K29.70 Gastritis, unspecified, without bleeding; K22.2 Esophageal obstruction; I10 Essential (primary) hypertension; M19.90 Unspecified osteoarthritis, unspecified site; E78.5 Hyperlipidemia, unspecified; D47.3 Essential (hemorrhagic) thrombocythemia; D64.9 Anemia, unspecified; K44.9 Diaphragmatic hernia without obstruction or gangrene; E86.0 Dehydration; H70.90 Unspecified mastoiditis, unspecified ear; Z90.710 Acquired absence of both cervix and uterus; Z90.12 Acquired absence of left breast and nipple; Z90.49 Acquired absence of other specified parts of digestive tract; Z86.73 Personal history of transient ischemic attack (TIA), and cerebral infarction without residual deficits; Z88.0 Allergy status to penicillin; Z88.2 Allergy status to sulfonamides; Z88.8 Allergy status to other drugs, medicaments and biological substances; Z91.041 Radiographic dye allergy status

== ENCOUNTER → 2019-02-02 | Outpatient (CLI) | payer MEDICARE, OTHER ==
[~2019-02-02] MED LIST changes: +ASPIRIN325 PO
--- NOTE | 2019-02-02 13:42 | 2DMMODE ---
[place] [address] 2 D/M-MODE ECHOCARDIOGRAM Name: IVAN STONER Room: [facility]#: [id number] Admission: 02/02/19 Attend Phys: Kurt Lagunas MD Discharge: Date of : 30 Date of Service: 02/02/19 1342 Report #: [id number] THIS REPORT FOR: //name// APPROVED REPORT Study performed: 02/02/2019 11:02:37 EXAM: Comprehensive 2D, Doppler, and color-flow Echocardiogram Patient Location: Out-Patient BSA: 1.31 HR: 72 bpm BP: 158/68 mmHg Other Information Study Quality: Fair Indications Cardiomyopathy 2D Dimensions IVSd: 11.80 (7-11mm) LVOT Diam: 20.43 (18-24mm) LVDd: 39.71 mm PWd: 9.65 (7-11mm) Ascending Ao: 24.78 (22-36mm) LVDs: 24.60 (25-40mm) Aortic Root: 25.27 mm Volumes Left Atrial Volume (Systole) LA ESV Index: 26.50 mL/m2 Aortic Valve AoV Peak Arash.: 1.39 m/s AO Peak Gr.: 7.77 mmHg LVOT Max P.65 mmHg AO Mean Gr.: 4.32 mmHg LVOT Mean P.32 mmHg LVOT Max V: 0.81 m/s AO V2 VTI: 26.56 cm LVOT Mean V: 0.53 m/s ASA (VTI): 2.13 cm2 LVOT V1 VTI: 17.29 cm Mitral Valve MV Peak Gr.: 6.22 mmHg MV Mean Gr.: 2.37 mmHg E/A Ratio: 0.64 MV Decel. Time: 348.09 ms MV E Max Arash.: 0.74 m/s MV PHT: 100.94 [place] [address] 2 D/M-MODE ECHOCARDIOGRAM Name: IVAN STONER Room: [facility]#: [id number] Admission: 02/02/19 Attend Phys: Kurt Lagunas MD Discharge: Date of : 30 Date of Service: 02/02/19 1342 Report #: [id number] MVA (PHT): 2.18 cm2 TDI E/Lateral E': 9.25 E/Medial E': 12.33 Medial E' Arash.: 0.06 m/s Lateral E' Arash.: 0.08 m/s Pulmonary Valve PV Peak Arash.: 1.17 m/s PV Peak Gr.: 5.45 mmHg Tricuspid Valve RAP Estimate: 5.00 mmHg TR Peak Gr.: 21.57 mmHg RVSP: 26.57 mmHg PA Pressure: 26.57 mmHg Left Ventricle The left ventricle is normal size. There is normal LV segmental wall motion. Borderline concentric left ventricular hypertrophy. Left ventricular systolic function is mildly decreased. LVEF is 45%. Grade I - abnormal relaxation pattern. Right Ventricle The right ventricle is normal size. The right ventricular systolic function is normal. Atria The left atrium size is normal. The right atrium size is normal. Aortic Valve Mild aortic valve sclerosis. No aortic regurgitation is present. There is no aortic valvular stenosis. Mitral Valve Moderate mitral annular calcification. There is no mitral valve regurgitation noted. No evidence of mitral valve stenosis. Tricuspid Valve The tricuspid valve is normal in structure. Mild tricuspid regurgitation. Pulmonic Valve The pulmonary valve is normal in structure. There is no pulmonic valvular regurgitation[place] [address] 2 D/M-MODE ECHOCARDIOGRAM Name: IVAN STONER Room: [facility]#: [id number] Admission: 02/02/19 Attend Phys: Kurt Lagunas MD Discharge: Date of : 30 Date of Service: 02/02/19 1342 Report #: [id number] The aortic root is normal in size. IVC is normal in size and collapses >50% with inspiration. Pericardium There is no pericardial effusion. <Conclusion> The left ventricle is normal size. Borderline concentric left ventricular hypertrophy. Left ventricular systolic function is mildly decreased. LVEF is 45%. Grade I - abnormal relaxation pattern. The right ventricle is normal size. The left atrium size is normal. Mild aortic valve sclerosis. No aortic regurgitation is present. There is no aortic valvular stenosis. Moderate mitral annular calcification. There is no mitral valve regurgitation noted. No evidence of mitral valve stenosis. The tricuspid valve is normal in structure. Mild tricuspid regurgitation. IVC is normal in size and collapses >50% with inspiration. There is no pericardial effusion. There is normal LV segmental wall motion. <ELECTRONICALLY SIGNED> By: Jayson De Oliveira MD, FACC 02/02/19 1342 134 134 Jayson De Oliveira MD, FACC /INF
== END ==
LOC: M.CRD 10:39
DX: I08.3 Combined rheumatic disorders of mitral, aortic and tricuspid valves (principal); I42.9 Cardiomyopathy, unspecified